=== PATIENT | male | born 1950 | race Caucasian/White ===

== ENCOUNTER → 2020-12-08 00:46 | Outpatient (CLI) | payer MEDICARE, SELFPAY ==
[2020-12-08 20:27] LABS: SARS-CoV-2 RNA PCR Negative
== END ==
PROVIDERS: Visit Provider Surgery
DX: Z01.812 Encounter for preprocedural laboratory examination (principal); Z20.822 Contact with and (suspected) exposure to COVID-19
CPT/HCPCS: C9803; U0003; U0005

== ENCOUNTER 2020-12-11 01:10 | Day surgery (SDC) | payer MEDICARE, SELFPAY ==
[2020-12-05 13:25] VITALS: BMI 22.1
--- NOTE | 2020-12-10 15:08 | WPDANESEPPF ---
Anes - Initial Pre Proc Eval Procedure: Operation Date: 12/11/20 13:30 Proposed Procedures p Repair Right Inguinal Hernia - Jovan Myers MD Date/Time: 12/10/20 15:08 Surgeon: Jovan Myers MD Pre Op Diagnosis: right inguinal hernia Patient Data Age: 70 Gender: M Height: 1.85 m Weight: 75.9 kg Allergies Allergy/AdvReac Type Severity Reaction Status Date / Time No Known Allergies Allergy Verified 12/05/20 13:23 Home Medications Medication Instructions Recorded Confirmed Type aspirin 81 mg chewable tablet 81 mg PO DAILY 12/02/20 12/05/20 History atorvastatin 40 mg tablet 40 mg PO HS 12/02/20 12/05/20 History buspirone 5 mg tablet 5 mg PO BID 12/02/20 12/05/20 History escitalopram oxalate 10 mg tablet 10 mg PO DAILY 12/02/20 12/05/20 History Patient hx anesthesia problems: none Family hx anesthesia problems: none PMFSH Past Medical History Medical History (Updated 12/10/20 @ 15:09 by Sánchez Kumar DO) Depression High cholesterol Stroke 01/2020 - L sided weakness, hoarse voice Surgical History Surgical History Hx of gastric bypass Family History Family History Unknown Malignant neoplasm Social History Social History (Updated 12/02/20 @ 10:29 by Elsi Michelle CMA) Years smoked: 15 Smoking status: Former smoker Tobacco type: cigars Smokeless tobacco user: chewing tobacco Second hand tobacco smoke exposure: No Additional smoking assessment comments: STATES QUIT SMOKING CIGARS 1980, QUIT CHEWING TOBACCO 2004 Alcohol intake: never Substance use: never Substance use type: does not use Spiritual care concerns: No Anes - Eval Final PreProcedure Day of Procedure 12/10/20 15:08 Patient weight: normal Heart: regular rate and rhythm Lungs: clear to auscultation and normal air movement Airway: Mallampati scale class II Neurological: alert and oriented Last oral intake: >/= 8 hours ASA classification: III Emergent: no Anesthetic plan: proceed Anesthesia type and monitoring: general GIVS and standard monitoring Informed Consent: The patient's anesthetic plan and its attendant risks and benefits were discussed with the patient/family/POA. Questions were solicited and answers provided to the satisfaction of the patient/family/POA.
[2020-12-11] VITALS (7 sets, daily range): BP systolic 110–122; BP diastolic 70–76; PULSE 60–84; RESP 16–20; TEMP 36.6–36.7; O2SAT 100; BMI 21.7
--- NOTE | 2020-12-11 06:05 | WPDHPUPDATE1 ---
History and Physical Update Update Date/Time: 12/11/20 06:05 History and Physical has been reviewed, including an updated exam of the patient. There are NO changes in the patient's condition. Risks, benefits, and alternatives have been discussed and questions answered. Patient agrees to proceed with procedure.
[2020-12-11] MEDS: LACTATED RINGERS 1,000 ML 30 ML IV CONT (12:10)
[2020-12-11] MEDS: ACETAMINOPHEN 500 MG TABLET 1000 MG PO (12:20)
[2020-12-11] MEDS: KETOROLAC 15 MG/ML VIAL (*BKC) IV PUSH (12:20)
--- NOTE | 2020-12-11 13:25 | SUR.PREOP ---
1325- Notified patient and spouse procedure start time delayed. Patient and spouse verbalized understanding.
[2020-12-11] MEDS: ceFAZolin 2 GM/D5W 50 ML 2 GM/50 ML BAG IVPB (14:58)
[2020-12-11] MEDS: BUPIVACAINE/EPINEPHRINE 0.5% 30 ML VIAL INFILTRATE (15:20)
--- NOTE | 2020-12-11 16:31 | W.PM.PROC2 ---
Procedure Note - Detailed Date of Procedure 12/11/20 Pre-op Diagnosis right inguinal hernia Post-op Diagnosis same Procedure Performed Right inguinal hernia repair with 6 cm Parietex hernia mesh system Surgeon Jovan Myers MD Computer Numerical Control Programmer Leigh Olmos CULINARY INSTRUCTOR CULINARY INSTRUCTOR Anesthesia general and local ( 0.5% Marcaine with epinephrine) Indications patient is a 70-year-old man who has noticed a right groin bulge which can get quite large at times. It is occasionally painful. He was seen in the office and found to have a right inguinal hernia. He is taken to surgery now for repair. Findings Showed an indirect right inguinal hernia. He also had a large lipoma of the cord. The lipoma was removed as well as the hernia repaired. Description of Procedure Patient was taken to surgery and induced into general anesthesia. The right groin and genitalia were prepped and draped in the usual fashion. The proposed incision was marked on the skin. Local was infiltrated in the area of the anticipated incision and the deeper subcutaneous tissues. Incision was made and dissection was carried down through the subcutaneous to the external oblique aponeurosis. The aponeurosis was exposed as was the external ring. Additional local was infiltrated deep to the aponeurosis in the area of the spermatic cord and inguinal canal contents. The external oblique was then opened laterally and this was extended medially through the external ring. The leaves of the aponeurosis were freed from the underlying inguinal canal contents. The ileal inguinal nerve was left attached to the cord and uninjured during the surgery. We then mobilized the cord medially on a Janet drain. I dissected back to the internal ring mobilizing the cord. No direct hernia defect was found. We dissected anteromedially in the cord and found a hernia sac. The sac was not particularly large. It was dissected free from the spermatic cord and dissected back to a high dissection. It was dunked into the retroperitoneum. Also in the cord was a large lipoma. I dissected this free and amputated it near the internal ring. It was discarded. I then chose a 6 cm Parietex tonawanda unfolded this to formal plug. The plug was placed in the indirect defect. It was sutured in place using interrupted 3 0 Vicryl suture to suture the edge of the plug to the transversalis fascia. I then cut the patch to the appropriate size and placed it over the inguinal canal floor. The lateral leaves were passed around the cord. The cord and ileoinguinal nerve were then laid over the patch. The external oblique aponeurosis was then closed with interrupted 3 0 Vicryl suture. Sudheer's fascia was closed with interrupted 3 0 Vicryl suture. The subcutaneous was closed with interrupted 4 0 Vicryl suture. The skin was loosely approximated with 4 0 Vicryl subcuticular skin suture. The skin was closed finally with a running 4 0 Monocryl skin suture. Sponge and needle counts were correct x2. Implants 6 cm Parietex hernia mesh system Estimated Blood Loss 5 Drains No Packing No Pathology none sent Complications None Condition stable Disposition PACU
== END 2020-12-11 18:22 | disposition home or self-care (01) ==
PROVIDERS: PCP Family Medicine; Visit Provider Surgery
PROC: (CPT 49505; principal; 2020-12-11 13:30)
DX: K40.90 Unilateral inguinal hernia, without obstruction or gangrene, not specified as recurrent (principal); E78.00 Pure hypercholesterolemia, unspecified; F32.9 Major depressive disorder, single episode, unspecified; Z79.82 Long term (current) use of aspirin; I69.354 Hemiplegia and hemiparesis following cerebral infarction affecting left non-dominant side; Z98.84 Bariatric surgery status; Z87.891 Personal history of nicotine dependence
CPT/HCPCS: 49505; A9270; C1781; J0330; J0690; J1100; J1885; J2405; J2704; J3010; J7120

== ENCOUNTER 2021-03-10 10:05 | Inpatient (IN) | payer MEDICARE, SELFPAY ==
[2021-03-10] VITALS (32 sets, daily range): BP systolic 87–105; BP diastolic 43–79; PULSE 63–96; RESP 14–27; TEMP 36.4–38.2; O2SAT 87–100; BMI 23.1
--- NOTE | ~2021-03-10 | US_ITS ---
EXAMINATION: US perc cholecystostomy w imag DATE: 03/11/2021 12:43 INDICATION: Acute cholecystitis. TECHNIQUE: The procedure including the risks, benefits, and alternatives was discussed with the patie nt. Risks discussed included bleeding including hemobilia, infection, and bile peritonitis. Oral and written consent were obtained. A timeout was performed to verify the patient's name, date of , and procedure to be performed. The patient was confirmed to be receiving appropriate antibiotic cov erage. The skin overlying the gallbladder was prepped and draped in usual sterile fashion. Anesthet ic was administered with 1% lidocaine subcutaneously. An 8.5 Fr catheter was inserted into the gallb ladder by trocar technique. The metal stiffener and trocar needle were removed, and the pigtail tip w as locked. Bile was aspirated and sent for culture. The catheter was stitched to the skin with suture . There were no immediate complications. FINDINGS: Ultrasound images demonstrate the catheter within the gallbladder. 5 mL bile was aspirated. IMPRESSION: 1. Successful ultrasound-guided cholecystostomy tube placement. 2. 5 mm brown bile was sent for aerobic and anaerobic cultures. 3. The catheter will be managed by Dr. Becerra. A catheter cholangiogram may be performed not less th an 48 hours after tube placement if clinically indicated to assess cystic duct patency. If cholecyste ctomy is not eventually performed and the infectious episode has resolved, the tube may be removed ov er a guidewire, preferably not less than 3 weeks after placement to allow time for a mature catheter tract to form to prevent bile leakage and peritonitis. Reviewed, dictated and finalized at location A. IMPRESSION: 1. Successful ultrasound-guided cholecystostomy tube placement. 2. 5 mm brown bile was sent for aerobic and anaerobic cultures. 3. The catheter will be managed by Dr. Becerra. A catheter cholangiogram may be performed not less than 48 hours after tube placement if clinically indicated to assess cystic duct patency. If cholecystectomy is not eventually performed a nd the infectious episode has resolved, the tube may be removed over a guidewir e, preferably not less than 3 weeks after placement to allow time for a mature catheter tract to form to prevent bile leakage and peritonitis.
--- NOTE | ~2021-03-10 | CT_ITS ---
EXAMINATION: CT abdomen pelvis w con DATE: 03/10/2021 13:44 INDICATION: Epigastric abdominal pain. TECHNIQUE: Computed tomography (CT) of the abdomen and pelvis was performed with 100 mL Omnipaque 350 intravenous contrast. Automated exposure control and iterative reconstruction technique were employe d. The dose-length product was 582.01 mGy-cm. COMPARISON: None. FINDINGS: The visualized portions of the lung bases demonstrate mild dependent atelectasis. A calcifi ed left lung nodule is consistent with old granulomatous disease. There are small pleural effusions. The heart size is normal. No pericardial effusion. There is a gallstone in the gallbladder neck. The gallbladder is distended with wall thickening. There is fat stranding around the gallbladder. There a re abscesses in the liver abutting the gallbladder measuring up to 6.8 x 1.5 cm. The spleen, pancreas , adrenal glands, and right kidney are normal. There is focal cortical thinning of left kidney. There is a 4 mm stone in left kidney. There are changes of gastric bypass procedure. There is a staple elisa e involving the proximal duodenum. There is diverticulosis of the colon without evidence of diverticu litis. There are no dilated loops of bowel. There are changes of appendectomy. There are no pathologi mimi enlarged lymph nodes. There is trace pelvic ascites. There is lumbar levoscoliosis and severe s pondylosis. There are chronic bilateral L5 pars defects. There is mild chronic anterior wedging of mu ltiple thoracic vertebral bodies. IMPRESSION: 1. Acute calculus cholecystitis with adjacent intrahepatic abscesses. 2. Small pleural effusions. Reviewed, dictated and finalized at location A.
--- NOTE | ~2021-03-10 | XR_ITS ---
EXAMINATION: XR chest 1V portable DATE: 03/10/2021 11:10 INDICATION: Left-sided weakness and slurred speech. TECHNIQUE: frontal view of the chest was obtained. COMPARISON: Chest radiograph dated 05/26/2016 FINDINGS: The lungs are clear with no focal airspace opacities, pulmonary edema, pleural effusion or pneumothor ax. The cardiomediastinal silhouette is normal. Postoperative changes in the upper abdomen. IMPRESSION: 1. No acute cardiopulmonary disease. Reviewed, dictated and finalized at location A.
--- NOTE | 2021-03-10 10:08 | ECG_ITS ---
Measurements Intervals [place] Rate: 93 P: 32 CT: 156 QRS: -24 QRSD: 108 T: 14 QT: 321 QTc: 400 Interpretive Statements SINUS RHYTHM VENTRICULAR PREMATURE COMPLEX INCOMPLETE RIGHT BUNDLE BRANCH BLOCK MINIMAL Q WAVES- ANTEROLATERAL LEADS BORDERLINE ECG Electronically Signed On 03-10-2021 13:04:43 CDT by Jamie Hernandez D.O.
[2021-03-10 10:47] LABS: Basophils Absolute Auto 0.1 K/mm3 (0.0-0.1); Basophils Percent Auto 0.6 % (0.2-1.2); Eosinophils Percent Auto 0.1 % (0-4.4); Hematocrit 43.7 % (42.0-52.0); Hemoglobin 15.2 g/dL (14.0-18.0); Immature Granulocyte Absolute 0.87 K/mm3 (0.00-0.031); Immature Granulocyte Percent A 4.6 % (0-0.5); Immature Platelet Fraction Pct 7.2 % (0.9-11.2); Lymphocytes Percent Auto 1.6 % (18.3-44.2); Mean Corpuscular HGB Conc 34.8 g/dl (32-36); Mean Corpuscular Hemoglobin 33.4 pg (26-34); Mean Platelet Volume 12.1 fl (7.4-10.4); Monocytes Absolute Auto 1.2 K/mm3 (0.1-0.6); Monocytes Percent Auto 6.4 % (2.6-8.5); Neutrophils Absolute Auto 16.3 K/mm3 (1.3-6.7); Neutrophils Percent Auto 86.7 % (45.5-73.1); Platelet Count Result 38 k/mm3 (150-375); Red Blood Count 4.55 M/mm3 (4.6-6.20); Red Cell Distribution Width 14.6 % (11.5-14.5); White Blood Count 18.8 K/mm3 (4.5-10.0)
[2021-03-10 11:01] LABS: INR 1.9; Partial Thromboplastin Time 39.2 SECONDS (22.3-36.8); Prothrombin Time 21.1 Seconds (11.1-14.7)
[2021-03-10 11:07] LABS: Anion Gap 13 mmol/L (8-16); Blood Urea Nitrogen 30 mg/dL (9-20); Calcium 8.7 mg/dL (8.4-10.2); Carbon Dioxide 22 mmol/L (22-30); Chloride 100 mmol/L (98-107); Estimated CRCL calculation 53 ml/min; Estimated Glomerular Filt Rate 55; Glucose 104 mg/dL (65-110); Potassium 3.8 mmol/L (3.4-5.0); Sodium 135 mmol/L (137-145)
[2021-03-10 11:18] LABS: Troponin I 0.015 ng/mL (0.000-0.034)
[2021-03-10] MEDS: SODIUM CHLORIDE 0.9% IV 1,000 ML 999 ML IV CONT (11:54)
--- NOTE | 2021-03-10 12:16 | ED.GENADULT ---
HPI - General Adult General Chief complaint: Neuro Symptoms/Deficit Stated complaint: l arm weakness, slurred speech Time Seen by Provider: 03/10/21 11:08 History of Present Illness HPI narrative: Patient is a 70-year-old male who presents the ER with increased weakness and fatigue over the last 3 days. reports patient has history of CVA that left arm with difficulty talking where he has to be asked questions multiple times and some chronic left-sided weakness that still allows him to function but is still present. He also has chronic hoarseness to his voice. She reports he has had some increased weakness over the last couple days and is dropping things. He is not as active. No documented fevers or chills or sweats. She denies any use been having any nausea or vomiting or cough. He is unvaccinated against Covid. No reports urinary frequency urgency or incontinence. Related Data Home Medications Medication Instructions Recorded Confirmed aspirin 81 mg chewable tablet 81 mg PO DAILY 12/02/20 03/10/21 atorvastatin 40 mg tablet 40 mg PO HS 12/02/20 03/10/21 buspirone 5 mg tablet 5 mg PO BID 12/02/20 03/10/21 escitalopram oxalate 10 mg tablet 10 mg PO DAILY 12/02/20 03/10/21 Allergies Allergy/AdvReac Type Severity Reaction Status Date / Time No Known Allergies Allergy Verified 01/13/21 14:04 Review of Systems Review of Systems: All systems reviewed & are unremarkable except as noted in HPI and below Constitutional: Constitutional: Denies chills, Denies fever(s) and Reports weakness ENT: Denies nasal congestion and Denies sore throat Cardiovascular: Cardiovascular: Denies chest pain, Denies rapid heart rate and Denies radiating jaw, neck or arm pain Respiratory: Respiratory: Denies cough, Denies dyspnea and Denies wheezing Gastrointestinal: Gastrointestinal: Denies abdominal pain, Denies diarrhea, Denies nausea and Denies vomiting Genitourinary: Genitourinary: Denies dysuria, Denies urinary frequency and Denies urinary incontinence Musculoskeletal: Musculoskeletal: Reports back pain (Intermittent back pain that is not localized.), Reports myalgias and Denies arthralgias [facility] Past Medical History Medical History (Updated 03/10/21 @ 20:50 by Charles Phelps MD) Depression High cholesterol Stroke 01/2020 - L sided weakness, hoarse voice Surgical History Surgical History History of inguinal hernia repair Right inguinal hernia repair with 6cm Parietex hernia mesh system 12/11/20 History of knee surgery Hx of gastric bypass Family History Family History Unknown Malignant neoplasm Social History Social History Years smoked: 15 Smoking status: Former smoker Tobacco type: cigarettes Smokeless tobacco user: chewing tobacco Second hand tobacco smoke exposure: No Additional smoking assessment comments: STATES QUIT SMOKING CIGARS 1980, QUIT CHEWING TOBACCO 2004 Alcohol intake: unknown Substance use: never Substance use type: does not use Living arrangements: with family Additional living arrangements comments: Lives with his , Mayra Gender identity (if verbalized by the patient): Male Sexual Orientation (if Verbalized by the Patient): Straight or Heterosexual Spiritual care concerns: No Exam Narrative: GENERAL: Chronically ill and fatigued-appearing, well-nourished, and in no acute distress. HEAD: Normocephalic, atraumatic. EYES: PERRL and EOMI. ENT: Dry mucous membranes. CHEST: Clear to auscultation. No respiratory distress. HEART: Regular rate and rhythm. Noormal peripheral pulses. ABDOMEN: Soft, nontender, nondistended. EXTREMITIES: Normal range of motion. No edema. SKIN: Warm, dry, no rash. NEURO: No focal deficits. No upper or lower extremity drift. Clear speech with hoarse voice. No word sea
[2021-03-10 12:20] LABS: Add Urine Microscopic? YES; Appearance Urine Cloudy (Clear); Bacteria Urine Trace /hpf; Bilirubin Urine Negative (Negative); Blood Urine 1+ (Negative); Budding Yeast Urine Present /hpf; Color Urine Amber (Yellow); Glucose Urine UA Negative (Negative); Ketones Urine Negative (Negative); Leukocyte Esterase Ur Negative LEU/UL (Negative); Mucus Urine Rare /lpf; Nitrate Urine Negative (Negative); Protein Urine 2+ mg/dL (Negative); Specific Grav Ur 1.024 (1.001-1.035); Squamous Epithelial Cell Urine Rare /hpf (Few)
[2021-03-10 12:21] LABS: Lactic Acid Reflex 4.4 mmol/L (0.7-2.1)
[2021-03-10] MEDS: SODIUM CHLORIDE 0.9% IV 2,400 ML/1,000 ML BAG 999 ML IV CONT ×3 (12:36→14:46)
[2021-03-10 14:06] LABS: Albumin Level 2.9 g/dL (3.5-5.1); Alkaline Phosphatase 286 U/L (38-126); Aspartate Amino Transferase 350 U/L (17-59); Bilirubin Direct 0.4 mg/dL (0-0.3); Bilirubin,Total 3.3 mg/dL (0.2-1.3); Lipase 20 U/L (23-300)
[2021-03-10 15:01] LABS: Alanine Aminotransferase 230 U/L (4-50)
[2021-03-10 15:09] LABS: Reflex Lactic Acid Yes or No Add Lactic
[2021-03-10 15:55] LABS: Lactic Acid 3.2 mmol/L (0.7-2.1)
--- NOTE | 2021-03-10 16:22 | PM.CNGS ---
Assessment and Plan Assessment and plan (1) Acute calculous cholecystitis: Code(s): K80.00 - Calculus of gallbladder with acute cholecystitis without obstruction Status: Acute Assessment and Plan: CT scan reviewed and discussed in detail with the patient and his . He has evidence of acute calculous cholecystitis with a gallstone in the neck of the gallbladder. The CT also suggests liver abscesses abutting the gallbladder. This appears to be the source of his sepsis. No mention of biliary duct dilatation to suggest choledocholithiasis as a possible cause for his transaminitis. Will continue to monitor with labs. This could be related to the acute cholecystitis. He is not a surgical candidate at this time due to his severe thrombocytopenia. Surgery would also be complicated given his history of gastric bypass years ago. We would recommend to continue to treat him with medical management at this time. Continue IV Zosyn and IV fluids. Dr. Becerra will review the CT scan with the Radiologist and decide about possible percutaneous intervention if necessary tomorrow, also depending on his platelets. Will repeat a CBC later tonight to recheck platelets and then again in the morning. Thank you for allowing us to see the patient in consultation and we will continue to follow along with you. (2) Liver abscess: Code(s): K75.0 - Abscess of liver Status: Acute Assessment and Plan: CT suggests abscesses in the liver abutting the gallbladder measuring up to 6.[address] Becerra will speak with the Radiologist and review the CT scan. Could consider percutaneous drainage if the fluid collections are amenable to drainage and his platelets come up to an ideal level for the Interventional Radiologist. (3) Sepsis: Code(s): A41.9 - Sepsis, unspecified organism Status: Acute Assessment and Plan: Secondary to #1/2 above. Blood cultures drawn. Continue IV fluid resuscitation and broad-spectrum IV antibiotics. See plan above regarding his gallbladder. Monitor labs. (4) Transaminitis: Code(s): R74.01 - Elevation of levels of liver transaminase levels Status: Acute Assessment and Plan: Elevated LFTs on admission. Could be due to the acute cholecystitis but would have to consider choledocholithiasis. No mention of biliary ductal dilatation on the CT scan. Repeat labs and monitor. If trending up, may need to consider an MRCP. (5) History of stroke: Code(s): Z86.73 - Personal history of transient ischemic attack (TIA), and cerebral infarction without residual deficits Status: Acute Assessment and Plan: Hx stroke 1 year ago. (6) Thrombocytopenia: Code(s): D69.6 - Thrombocytopenia, unspecified Status: Acute Assessment and Plan: Unclear etiology. Could be related to his sepsis. Management per Hospitalist. See plan above. Additional Plan I have discussed the patient's case and plan of care with Dr. Becerra. History of Present Illness Consult details Consult date: 03/10/21 Reason for consult: other (acute calculous cholecystitis with abutting liver abscesses) Requesting physician: Charles Phelps MD Narrative: This is a 70 year old male with a history of a stroke one year ago with residual left-sided weakness, who presented the emergency department today for evaluation of generalized weakness. His , Mayra, is at the bedside and helps provide some of his history. He is alert and oriented x 3 but reportedly forgetful with more recent memory. The patient woke up about 3 days ago with complaints of epigastric abdominal pain and mid back pain. He had never had this pain in the past. They were topically applying Aspercreme to his abdomen and back without much relief. He had loss of appetite, but no nausea or vomiting. The next day, he did still complain of pain but it had improved. His says that he did not leave bed most of the day and began becoming mo
--- NOTE | 2021-03-10 16:30 | PM.IMHP ---
H&P: HPI History of Present Illness Date/Time: 03/10/21 16:30 Chief Complaint: Weakness and fatigue. Narrative: This is a 70-year-old male with history of stroke with residual left-sided weakness and cognitive deficit, hypercholesterolemia, depression, and anxiety who presented to the emergency department earlier today for evaluation of increased weakness and fatigue for the last several days. Three or 4 days ago the patient was outside working in the yard, at times taking up and transferring bricks, and later that evening he was feeling some discomfort in his mid back radiating around into the upper abdomen. Initially he thought he had probably pulled a muscle and he applied Aspercreme to the area without much benefit. Since that time his appetite has dropped off and he has been much more fatigued, sleeping quite a bit the last couple of days. Early this morning his heard him in the bathroom and it sounded as though he had knocked something over, and when she went to check on him he seemed to be extremely weak and he needed her help to get back into the bed. He was unable to lift his legs up to get into bed due to pain in his stomach. also thought that he felt a bit warm and she decided to bring him into the emergency department. He had a low-grade fever on arrival of 100.8? and a majority of his labs were abnormal in some form or another. His blood pressures were also soft though he was adequately hydrated and the patient is report that his blood pressures are always on the lower side of normal. A CT of the abdomen and pelvis demonstrated acute calculous cholecystitis with adjacent intrahepatic abscesses measuring up to 6.8 x 1.5 cm. Interestingly he does not have much pain at all on physical exam. He has no known history of gallbladder disease. He denies nausea and vomiting. No diarrhea or dysuria. He has not noticed a change in urine output. Review of Systems Review of Systems: Twelve systems were reviewed. Patient has mild residual left-sided weakness from stroke in 2019. He also has some speech difficulties, mainly hoarseness. reports that he has not been the same cognitively since the stroke. No sick contacts. He denies chest pain and shortness of breath. No cough. Except as documented, all other systems were reviewed and are negative. [facility] Past Medical History Medical History (Updated 03/10/21 @ 21:50 by Nancy Mathew PA-C) Depression High cholesterol Stroke (01/2020) Residual left-sided weakness, hoarseness, and cognitive deficit. Surgical History Surgical History (Updated 03/10/21 @ 21:45 by Nancy Mathew PA-C) History of arthroscopy of both knees History of gastric bypass . History of inguinal hernia repair (12/11/20) Right inguinal hernia repair with 6cm Parietex hernia mesh system. Family History Family History (Updated 03/10/21 @ 21:46 by Nancy Mathew PA-C) Mother Morbid obesity Heart disease Diabetes mellitus Father Asbestosis Social History Social History (Updated 03/10/21 @ 21:47 by Nancy Mathew PA-C) Social History: Surrogate decision maker: Mayra Longoria, . Code status: Full code. Years smoked: 15 Smoking status: Former smoker Tobacco type: cigarettes, cigars and smokeless tobacco Smokeless tobacco user: chewing tobacco Second hand tobacco smoke exposure: No Additional smoking assessment comments: Quit smoking cigars in 1980, quit chewing tobacco in 2004 Alcohol intake: never Substance use: never Substance use type: does not use Living arrangements: with family Additional living arrangements comments: Lives with his , Mayra. They have 2 grown children. Additional occupation/education comments: Retired from [employer]. Meds Home Medications and Allergies Home Medications Medication Instructions Recorded Confirmed Type aspirin 81 mg chewable tablet 81 mg PO DAILY 12/02/20 03/10/21 History atorvast
[2021-03-10] MEDS: LACTATED RINGERS 1,000 ML 125 ML IV CONT (16:54)
--- NOTE | 2021-03-10 17:58 | PC.NURSE ---
This patient, Lucien Longoria, was admitted to Intensive Care Unit-2. Patient/family oriented to hospital policies and general routines including ID bracelet, bed and alarms, visiting hours, pain management, procedures, bathroom and other care routines, personal items, smoking policy, room service/diet, and visiting hours. Information on how to activate the Rapid Response Team has been discussed. Patient/Family are encouraged to report perceived risks to care and to ask questions if they do not understand what they are told or what they should do.
[2021-03-10] MEDS: LACTATED RINGERS 1,000 ML 999 ML IV CONT (18:00)
[2021-03-10 18:59] LABS: Hematocrit 33.9 % (42.0-52.0); Hemoglobin 11.9 g/dL (14.0-18.0); Immature Platelet Fraction Pct 8.9 % (0.9-11.2); Mean Corpuscular HGB Conc 35.1 g/dl (32-36); Mean Corpuscular Hemoglobin 33.8 pg (26-34); Mean Corpuscular Volume 96.3 fl (80-100); Mean Platelet Volume 11.8 fl (7.4-10.4); Platelet Count Result 26 k/mm3 (150-375); Red Blood Count 3.52 M/mm3 (4.6-6.20); Red Cell Distribution Width 14.8 % (11.5-14.5); White Blood Count 26.4 K/mm3 (4.5-10.0)
[2021-03-10 19:06] LABS: Alanine Aminotransferase 294 U/L (4-50); Albumin Level 2.2 g/dL (3.5-5.1); Alkaline Phosphatase 124 U/L (38-126); Anion Gap 6 mmol/L (8-16); Aspartate Amino Transferase 490 U/L (17-59); Bilirubin,Total 4.3 mg/dL (0.2-1.3); Blood Urea Nitrogen 31 mg/dL (9-20); Calcium 7.3 mg/dL (8.4-10.2); Carbon Dioxide 22 mmol/L (22-30); Chloride 106 mmol/L (98-107); Estimated CRCL calculation 62 ml/min; Estimated Glomerular Filt Rate > 60; Glucose 115 mg/dL (65-110); Potassium 3.8 mmol/L (3.4-5.0); Sodium 134 mmol/L (137-145)
[2021-03-10 19:14] LABS: Alveolar/Arterial O2 Gradient 39.5 mmHg; Base Excess ABG -4.1 mEq/l (+/-2.0); Fractional Inspired Oxygen 21 %; HCO3 ABG 19.1 mEq/l (22.0-26.0); Oxygen Content ABG 16.9 %vol (16.0-22.0); Oxygen Saturation ABG 95.5 % (95.0-100.0); Oxyhemoglobin 94.2 % THb (90.0-100.0); PCO2 ABG 29.7 mmHg (35.0-45.0); PO2 ABG 74.7 mmHg (80.0-100.0); PO2 FiO2 Ratio Arterial Blood 3.56 %; Total Hemoglobin 12.7 g/dL (12.0-18.0); pH ABG 7.426 (7.350-7.450)
[2021-03-10 19:15] LABS: Device ROOM AIR; Modified Allen's Test Pass; Site Drawn LEFT RADIAL
[2021-03-10 19:26] LABS: Band Neutrophils Percent 7 % (0-6); Lymphocytes Absolute Manual 2.37 K/mm3 (1.1-4.5); Monocytes Percent Manual 11 % (3-9); Neutrophils Absolute Manual 21.12 K/mm3 (1.3-6.7); Neutrophils Percent Manual 73 % (46-73); Total Cells Counted 100
[2021-03-10 19:27] LABS: Platelet Estimate Decreased (Adequate)
[2021-03-10 22:40] LABS: Lactate Dehydrogenase 1262 U/L (313-618)
[2021-03-11] VITALS (21 sets, daily range): BP systolic 99–125; BP diastolic 54–87; PULSE 61–79; RESP 17–25; TEMP 36.6–37.2; O2SAT 19–100
[2021-03-11 04:48] LABS: Hematocrit 36.3 % (42.0-52.0); Hemoglobin 12.8 g/dL (14.0-18.0); Immature Platelet Fraction Pct 6.6 % (0.9-11.2); Mean Corpuscular HGB Conc 35.3 g/dl (32-36); Mean Corpuscular Hemoglobin 33.2 pg (26-34); Mean Corpuscular Volume 94.3 fl (80-100); Mean Platelet Volume 11.4 fl (7.4-10.4); Platelet Count Result 48 k/mm3 (150-375); Red Blood Count 3.85 M/mm3 (4.6-6.20); Red Cell Distribution Width 14.8 % (11.5-14.5); White Blood Count 23.2 K/mm3 (4.5-10.0)
[2021-03-11 05:25] LABS: INR 1.9; Partial Thromboplastin Time 40.9 SECONDS (22.3-36.8); Prothrombin Time 21.6 Seconds (11.1-14.7)
[2021-03-11 05:49] LABS: Nucleated Red Blood Cells 1 %
[2021-03-11 05:51] LABS: Band Neutrophils Percent 13 % (0-6); Basophils Absolute Manual 3.01 K/mm3 (0.0-0.1); Basophils Percent Manual 13 % (0-1); Lymphocytes Absolute Manual 0.92 K/mm3 (1.1-4.5); Monocytes Absolute Manual 1.62 K/mm3 (0.1-0.90); Monocytes Percent Manual 7 % (3-9); Neutrophils Absolute Manual 17.63 K/mm3 (1.3-6.7); Neutrophils Percent Manual 63 % (46-73); Total Cells Counted 100
[2021-03-11 05:52] LABS: Atypical Lymphocytes Present; Platelet Estimate Decreased (Adequate)
[2021-03-11 06:14] LABS: Alanine Aminotransferase 255 U/L (4-50); Albumin Level 2.1 g/dL (3.5-5.1); Alkaline Phosphatase 102 U/L (38-126); Anion Gap 6 mmol/L (8-16); Aspartate Amino Transferase 331 U/L (17-59); Bilirubin Direct 0.1 mg/dL (0-0.3); Bilirubin,Total 2.5 mg/dL (0.2-1.3); Blood Urea Nitrogen 33 mg/dL (9-20); Calcium 7.8 mg/dL (8.4-10.2); Carbon Dioxide 23 mmol/L (22-30); Chloride 108 mmol/L (98-107); Estimated CRCL calculation 66 ml/min; Estimated Glomerular Filt Rate > 60; Glucose 102 mg/dL (65-110); Lipase 60 U/L (23-300); Magnesium 2.2 mg/dL (1.6-2.3); Potassium 3.5 mmol/L (3.4-5.0); Sodium 137 mmol/L (137-145)
[2021-03-11 06:21] LABS: Prealbumin 5.1 mg/dL (17.6-36.0)
[2021-03-11 06:32] LABS: HAV RESULT Negative (Negative); Hepatitis B Core IgM Result Negative (Negative); Hepatitis B Surface Antigen Negative (Negative); Hepatitis C Virus Antibody Negative (Negative)
--- NOTE | 2021-03-11 08:07 | PM.PNGS ---
Progress Note: A&P Assessment and Plan (1) Acute calculous cholecystitis: Onset Date: ~03/08/21 Code(s): K80.00 - Calculus of gallbladder with acute cholecystitis without obstruction Status: Acute Assessment and Plan: This was shown by CT scan of the abdomen and pelvis yesterday. It appears that there is a calcified stone at the neck of the gallbladder leading to the problem. Planning for invasive radiology to place percutaneous cholecystostomy tube for drainage and send cultures today. (2) Severe sepsis: Onset Date: ~03/10/21 Code(s): A41.9 - Sepsis, unspecified organism; R65.20 - Severe sepsis without septic shock Status: Acute (3) Liver abscess: Onset Date: Unknown Code(s): K75.0 - Abscess of liver Status: Acute Assessment and Plan: This appears to be directly adjacent to the gallbladder and hopefully will drain and with the cholecystostomy tube and improve with the antibiotics. (4) Thrombocytopenia: Onset Date: ~03/10/21 Code(s): D69.6 - Thrombocytopenia, unspecified Status: Acute Assessment and Plan: I recommend avoiding subcu heparin and Lovenox. Has received platelet transfusions and will get 1 more prior to percutaneous drainage of the gallbladder today. 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 Will see if he can tolerate a diet and then add Ensure to boost his protein calories. Additional Plan will begin allowing patient low-fat diet following the procedure today if he is also feeling well. Patient has had probably a vertical banded gastroplasty in the past so should have low-fat meals 5 small meals per day. Subjective Subjective Date/Time Seen: 03/11/21 08:07 Patient reports: no new complaints and still having pain ( mild in right upper quadrant) Review of Systems Constitutional: Constitutional: Reports no additional constitutional complaints and Denies frequent falls Eyes: Eyes: Reports as per HPI Cardiovascular: Cardiovascular: Denies chest pain, Denies palpitations, Denies dyspnea and Denies dyspnea on exertion Respiratory: Respiratory: Denies hemoptysis, Denies dyspnea, Denies dyspnea on exertion and Denies wheezing Genitourinary: Genitourinary: Denies hematuria, Denies nocturia and Denies urinary frequency Musculoskeletal: Musculoskeletal: Denies deformity and Reports other ( no clubbing,cyanosis, or edema) Integumentary/Breasts: Skin/Breast: Denies new lesions, Denies rash and Denies unusual bruising Neurologic: Denies dizziness, Denies frequent falls, Denies memory loss and Denies seizure-like activity Psychiatric: Psychiatric: Denies memory loss and Reports other ( normal mood and mental status) Endocrine: Endocrine: Denies cold intolerance and Denies palpitations Exam Const: General: cooperative, healthy appearing, no acute distress, well developed and alert; No confusion Nutritional Appearance: well nourished Orientation/consciousness: patient oriented x3 and No confusion Limitations: no limitations HENMT: Head: normal to inspection, normocephalic and atraumatic Ears: hearing grossly normal bilaterally General nose exam: Normal external nose present Face and sinus: no edema Mouth: Yes Normal oral and palatal mucosa present and Yes lip normal Throat: posterior oropharynx normal Eyes: General: appearance normal, both eyes and all related structures Sclera: sclerae normal Pupils: Equal, round and reactive pupils present Neck: Neck: normal visual inspectio
--- NOTE | 2021-03-11 08:55 | WPDCNINT ---
Assessment and Plan Assessment and plan (1) Sepsis: Code(s): A41.9 - Sepsis, unspecified organism Status: Acute Assessment and Plan: Secondary to acute calculous cholecystitis and liver abscess. CT showed IMPRESSION:1. Acute calculus cholecystitis with adjacent intrahepatic abscesses. 2. Small pleural effusions. Initial lactic acid was 3.2. Patient received 4 L bolus in the ER On arrival to ICU [place] assessment showed patient was responsive to fluids and was given another 1 L Since then patient's lactate has cleared and has normalized Patient has not required vasopressors at this time Blood culture sent and are pending Patient is on empiric Zosyn General surgery was consulted and they recommend drain placement by intervention Radiology Plan for drain placement today. Patient is getting platelet transfusion for thrombocytopenia Patient will eventually need surgery -general surgery following (2) Liver abscess: Code(s): K75.0 - Abscess of liver Status: Acute Assessment and Plan: See above (3) Acute calculous cholecystitis: Code(s): K80.00 - Calculus of gallbladder with acute cholecystitis without obstruction Status: Acute Assessment and Plan: See above (4) Thrombocytopenia: Code(s): D69.6 - Thrombocytopenia, unspecified Status: Acute Assessment and Plan: Likely secondary to sepsis Patient has received 2 units of platelets overnight and is going to get 1 more unit at this time as per radiologist's request for scheduled invasive procedure (5) Abnormal coagulation profile: Code(s): R79.1 - Abnormal coagulation profile Status: Acute Assessment and Plan: Likely DIC Vitamin K Check fibrinogen level (6) Transaminitis: Code(s): R74.01 - Elevation of levels of liver transaminase levels Status: Acute Assessment and Plan: Likely secondary to sepsis and liver abscess Viral hepatitis panel is negative Hold statin Monitor LFTs Additional Plan DVT prophylaxis -SCDs Nutrition -NPO Code Status - Full Code Total Critical Care Time - 32 minutes Due to a high probability of clinically significant, life threatening deterioration, the patient required my highest level of preparedness to intervene emergently and I personally spent this critical care time directly and personally managing the patient. This critical care time included obtaining a history; examining the patient; pulse oximetry; ordering and review of studies; arranging urgent treatment with development of a management plan; evaluation of patient's response to treatment; frequent reassessment; and discussions with other providers. It was exclusive of separately billable procedures and treating other patients and teaching time. 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 He was accompanied by his who provided most of the history at the time of presentation in ER. On presentation to ED he was febrile and has significant abnormalities on his labs and his blood pressures were also soft. A CT of the abdomen and pelvis demonstrated acute calculous cholecystitis with adjacent intrahepatic abscesses measuring up to 6.8 x 1.5 cm. He was given IV fluid bolus and admitted to ICU. General surgery was consulted. This morning when I saw the patient he is a very poor historian. He told me that he had abdominal pain which started at 2:00 p.m. although he was unable to tell me what date. Pain is 5/10 in right upper quadrant no radiation. He was un
[2021-03-11 09:51] LABS: Fibrinogen 250 mg/dl (215-510)
[2021-03-11] MEDS: KCL 20 MEQ/0.45% NS 1,000 ML 100 ML IV CONT ×2 (09:56→18:16)
[2021-03-11] MEDS: PHYTONADIONE INJ 10 MG/ML AMP SUB-Q (09:56)
[2021-03-11] MEDS: SODIUM CHLORIDE 0.9% IV 250 ML 30 ML IV CONT (20:30)
[2021-03-12] VITALS (9 sets, daily range): BP systolic 98–128; BP diastolic 63–78; PULSE 52–68; RESP 16–22; TEMP 36.4–37.1; O2SAT 92–100; BMI 23.4
--- NOTE | 2021-03-12 01:49 | PC.NURSE ---
[facility], updated on patient departure and en rout to accepting.
[2021-03-12 04:40] LABS: Hemoglobin 11.6 g/dL (14.0-18.0); Immature Platelet Fraction Pct 6.5 % (0.9-11.2); Mean Corpuscular HGB Conc 34.1 g/dl (32-36); Mean Corpuscular Hemoglobin 33.1 pg (26-34); Mean Corpuscular Volume 97.1 fl (80-100); Mean Platelet Volume 11.3 fl (7.4-10.4); Platelet Count Result 52 k/mm3 (150-375); Red Cell Distribution Width 15.2 % (11.5-14.5); White Blood Count 15.8 K/mm3 (4.5-10.0)
[2021-03-12 04:51] LABS: Alanine Aminotransferase 151 U/L (4-50); Albumin Level 2.2 g/dL (3.5-5.1); Alkaline Phosphatase 92 U/L (38-126); Anion Gap 3 mmol/L (8-16); Aspartate Amino Transferase 123 U/L (17-59); Bilirubin,Total 1.7 mg/dL (0.2-1.3); Blood Urea Nitrogen 24 mg/dL (9-20); Calcium 7.5 mg/dL (8.4-10.2); Carbon Dioxide 25 mmol/L (22-30); Chloride 106 mmol/L (98-107); Estimated CRCL calculation 81 ml/min; Estimated Glomerular Filt Rate > 60; Glucose 95 mg/dL (65-110); Magnesium 2.4 mg/dL (1.6-2.3); Potassium 3.6 mmol/L (3.4-5.0); Sodium 134 mmol/L (137-145)
[2021-03-12] MEDS: KCL 20 MEQ/0.45% NS 1,000 ML 100 ML IV CONT (05:07)
--- NOTE | 2021-03-12 07:29 | PM.IMPN ---
Progress Note: A&P Assessment and Plan (1) Sepsis: Code(s): A41.9 - Sepsis, unspecified organism Status: Acute Assessment and Plan: Secondary to acute calculous cholecystitis and liver abscess. CT showedacute calculus cholecystitis with adjacent intrahepatic abscesses and small pleural effusions. Initial lactic acid was 3.2. Patient received 4 L bolus in the ER On arrival to ICU initial assessment showed patient was responsive to fluids and was given another 1 L Since then patient's lactate has cleared and has normalized Patient has not required vasopressors at this time Blood culture sent and are pending Patient is on empiric Zosyn General surgery recommend drain placement by interventional Radiology Patient s/p drain placement with improvement of his symptoms on 03/11/2021.. Patients/p platelet transfusion for thrombocytopenia Currently hemodynamically stable, with a blood pressure of 110/72. Clinically improving with improvement of his right upper quadrant abdominal pain. (2) Liver abscess: Onset Date: Unknown Code(s): K75.0 - Abscess of liver Status: Acute Assessment and Plan: Continue IV antibiotics with IV Zosyn. Follow-up blood cultures. Blood cultures are non revealing to date. (3) Acute calculous cholecystitis: Onset Date: ~03/08/21 Code(s): K80.00 - Calculus of gallbladder with acute cholecystitis without obstruction Status: Acute Assessment and Plan: Currently being treated for sepsis secondary to acute calculous cholecystitis and liver abscess. Continue IV antibiotics. Patient will need surgery in the future. (4) Thrombocytopenia: Onset Date: ~03/10/21 Code(s): D69.6 - Thrombocytopenia, unspecified Status: Acute Assessment and Plan: Likely secondary to sepsis Patient has received 2 units of platelets overnight and is going to get 1 more unit at this time as per radiologist's request for scheduled invasive procedure. The platelet count has improved from 26 to 48-52. Monitor daily platelet count (5) Abnormal coagulation profile: Code(s): R79.1 - Abnormal coagulation profile Status: Acute Assessment and Plan: This is likely his consumption secondary to DIC. On admission labs INR was 1.9, PTT 21.6, APTT was 40.9 at and fibrinogen was 250. Monitor coagulation profile. Vitamin-K was supplemented. 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 He was accompanied by his who provided most of the history at the time of presentation in ER. On presentation to ED he was febrile and has significant abnormalities on his labs and his blood pressures were also soft. A CT of the abdomen and pelvis demonstrated acute calculous cholecystitis with adjacent intrahepatic abscesses measuring up to 6.8 x 1.5 cm. He was given IV fluid bolus and admitted to ICU. General surgery was consulted. Patient underwent placement of percutaneous cholecystectomy tube for drainage with improvement of his symptoms. Follow-up drainage fluid cultures. 03/12/21 07:29 S: Patient was examined at the bedside . Improvement of his RUQ pain. No bowel movement; flatus(+). Review of Systems Review of Systems: All systems reviewed & are unremarkable except as noted in HPI and below (HPI) Constitutional: Constitutional: Reports as
--- NOTE | 2021-03-12 09:09 | WPDINTPN ---
Progress Note: A&P Assessment and Plan (1) Sepsis: Code(s): A41.9 - Sepsis, unspecified organism Status: Acute Assessment and Plan: Secondary to acute calculous cholecystitis and liver abscess. CT showed IMPRESSION:1. Acute calculus cholecystitis with adjacent intrahepatic abscesses. 2. Small pleural effusions. Patient has seasoning over of IV fluids for resuscitation and his lactate has normalized His blood pressure has been adequate and he has not required any vasopressors 03/11 - Successful ultrasound-guided cholecystostomy tube placement. Blood culture are growing Gram-negative rods. Bile was sent for cultures yesterday and is pending Patient is on empiric Zosyn General surgery is following Patient will eventually need surgery -general surgery following Continue but decrease IV fluids (2) Liver abscess: Onset Date: Unknown Code(s): K75.0 - Abscess of liver Status: Acute Assessment and Plan: See above (3) Acute calculous cholecystitis: Onset Date: ~03/08/21 Code(s): K80.00 - Calculus of gallbladder with acute cholecystitis without obstruction Status: Acute Assessment and Plan: See above (4) Thrombocytopenia: Onset Date: ~03/10/21 Code(s): D69.6 - Thrombocytopenia, unspecified Status: Acute Assessment and Plan: Likely secondary to sepsis Patient has received 2 units of platelets yesterday for procedure Continue to monitor and transfuse as needed (5) Abnormal coagulation profile: Code(s): R79.1 - Abnormal coagulation profile Status: Acute Assessment and Plan: Likely mild DIC. His fibrinogen was adequate Vitamin K was given 03/11 (6) Transaminitis: Code(s): R74.01 - Elevation of levels of liver transaminase levels Status: Acute Assessment and Plan: Likely secondary to sepsis and liver abscess Viral hepatitis panel is negative Hold statin Bilirubin level is decreasing Monitor LFTs which are improving Additional Plan DVT prophylaxis -SCDs Nutrition -liquid diet, advanced per General surgery Code Status - Full Code Incentive spirometry, up in chair, consult PT and OT Transfer out of ICU today Subjective Date/time seen: 03/12/21 09:09 Overnight events reviewed. Patient had drain placement and right upper quadrant by Radiology yesterday. Draining bilious content. States he sore in his right upper quadrant in abdomen and he rates his soreness at 7/10. Denies any nausea vomiting fever chest pain or shortness of breath. He is tolerating liquid diet. He is afebrile.. All other systems were reviewed and were negative Review of Systems Review of Systems: All systems reviewed & are unremarkable except as noted in HPI and below (HPI) Exam Narrative: General: Pt is alert awake and in NAD, impaired hearing Lungs/Chest: Trachea central Clear BS B/L, No crackles or wheezing. Cardiac: RRR. Normal S1 S2. No murmurs Circulation: Pedal pulses are intact and symmetrical. Abdomen: Decreased bowel sounds.. Soft. Nondistended no guarding, mild tender to palpation in right upper quadrant [place] drain in right upper quadrant with bilious drainage Extremities: No clubbing, cyanosis or edema. Warm : Gill in place Neurologic: Follows commands. Moves all 4 extremities PERRL AO x3 Skin: No Rash Objective Data Vital Signs Vital Signs: Vital Signs - 24 hr 03/11/21 10:00 03/11/21 12:00 03/11/21 14:00 Temperature 36.9 C Pulse Rate 76 74 65 Respiratory Rate 22 H 24 H 20 Blood Pressure 115/54 L 109/75 102/69 Pulse Oximetry 96 95 96 03/11/21 16:00 03/11/21 18:00 03/11/21 20:00 Temperature 36.9 C Pulse Rate 79 67 61 Respiratory Rate 23 H 25 H 21 H Blood Pressure 103/66 117/72 110/72 Pulse Oximetry 95 99 96 03/11/21 20:32 03/11/21 20:35 03/11/21 20:49 Temperature 36.9 C 36.9 C 36.7 C Pulse Rate 66 72 69 Respiratory Rate 20 20 21 H Blood Pressure 110/72 125/76 113/77 Pulse
[2021-03-12] MEDS: POTASSIUM CHLORIDE 20 MEQ TABLET 40 MEQ PO (09:18)
--- NOTE | 2021-03-12 11:14 | PM.PNGS ---
Progress Note: A&P Assessment and Plan (1) Acute calculous cholecystitis: Onset Date: ~03/08/21 Code(s): K80.00 - Calculus of gallbladder with acute cholecystitis without obstruction Status: Acute Assessment and Plan: This was shown by CT scan of the abdomen and pelvis on 03/10. It appears that there is a calcified stone at the neck of the gallbladder leading to the problem. . (2) Severe sepsis: Onset Date: ~03/10/21 Code(s): A41.9 - Sepsis, unspecified organism; R65.20 - Severe sepsis without septic shock Status: Acute Assessment and Plan: improving. No fever today. Starting a tolerated diet. Blood cultures apparently plan min early going to gram-negative. (3) Liver abscess: Onset Date: Unknown Code(s): K75.0 - Abscess of liver Status: Acute Assessment and Plan: This appears to be directly adjacent to the gallbladder and hopefully will drain with the cholecystostomy tube and improve with the antibiotics. (4) Thrombocytopenia: Onset Date: ~03/10/21 Code(s): D69.6 - Thrombocytopenia, unspecified Status: Acute Assessment and Plan: I recommend avoiding subcu heparin and Lovenox. Has received platelet transfusions. Platelet count 50,000 today continue to monitor. (5) History of stroke: Code(s): Z86.73 - Personal history of transient ischemic attack (TIA), and cerebral infarction without residual deficits Status: Acute (6) Hypoalbuminemia: Code(s): E88.09 - Other disorders of plasma-protein metabolism, not elsewhere classified Status: Acute Assessment and Plan: Possibly related to his previous gastric bypass. Patient probably has not been eating well for the last 2 weeks at home in view of this were result. Could also be related to his recent onset of acute cholecystitis and sepsis with decreased appetite. Will see if he can tolerate a diet and then add Ensure to boost his protein calories. Because of his previous gastric bypass he will need 4-5 small meals per day provided by our Nutrition Department. Additional Plan Okay with me to transfer to the floor. Will leave it up to Medicine and hvac designer as to whether patient needs monitored bed. I will allow patient low-fat diet if he is also feeling well. Patient has had probably a vertical banded gastroplasty in the past so should have low-fat meals 4-5 small meals per day. Will put in for a duplex suppository today since the patient has not had a bowel movement and also dietary consult to help with the plans for his nutrition while hospitalized and for home going. Subjective Subjective Date/Time Seen: 03/12/21 11:14 Post Op day: 1 ( status post ultrasound-guided cholecystostomy tube placement) Patient reports: no new complaints, feels better and flatus Interval history: No bowel movement yet. Patient did try full liquids at breakfast. ( Nurse reports patient did take too much but did drink the Ensure). He states he has a little soreness in the right upper quadrant near the drain but otherwise feels well. Review of Systems Review of Systems: ROS unobtainable: Yes other ( Limited secondary to memory issues) Constitutional: Constitutional: Denies chills, Denies fever(s) and Reports poor appetite ( as per nurse) Eyes: Eyes: Reports other ( no obvious icterus) Cardiovascular: Cardiovascular: Denies chest pain Gastrointestinal: Gastrointestinal: Reports constipation ( no bowel movement since arriving to the hospital) Exam Const: General: cooperative, no acute distress, alert and awake Eyes: Sclera: sclerae normal GI: Inspection: normal to inspection and other ( dressing with exit of the drain high right upper quadrant) GI Palp: Yes abdominal tenderness ( Only near the drain right upper quadrant.) and Yes Soft to palpation Auscultation: normal bowel sounds Other: Bile colored brown bilious drainage in cholecystostomy ba
--- NOTE | 2021-03-12 11:47 | PC.NURSE ---
Spoke to dietary, and per Dr. Becerra request - patient will receive 4-5 small meals, in place of 3 large meals.
[2021-03-12] MEDS: BISACODYL 10 MG SUPPOSITORY RECTAL (15:01)
--- NOTE | 2021-03-12 15:02 | PC.NURSE ---
This patient, Lucien Longoria, was transferred to [[facility] ] on 03/12/21 at 1502. Personal belongings sent with patient. Report given to [ Megha OSCAR]. Appropriate documentation sent with patient.
[2021-03-12] MEDS: ACETAMINOPHEN 325 MG TABLET 650 MG PO (22:20)
[2021-03-13 05:36] VITALS: BP 115/68; PULSE 80; RESP 18; TEMP 36.8; O2SAT 97
[2021-03-13 06:14] LABS: Hematocrit 33.3 % (42.0-52.0); Hemoglobin 11.7 g/dL (14.0-18.0); Mean Corpuscular HGB Conc 35.1 g/dl (32-36); Mean Corpuscular Volume 93.8 fl (80-100); Mean Platelet Volume 11.4 fl (7.4-10.4); Platelet Count Result 41 k/mm3 (150-375); Red Blood Count 3.55 M/mm3 (4.6-6.20); Red Cell Distribution Width 15.1 % (11.5-14.5); White Blood Count 13.5 K/mm3 (4.5-10.0)
[2021-03-13 06:25] LABS: Alanine Aminotransferase 103 U/L (4-50); Alkaline Phosphatase 87 U/L (38-126); Anion Gap 2 mmol/L (8-16); Aspartate Amino Transferase 64 U/L (17-59); Bilirubin,Total 1.5 mg/dL (0.2-1.3); Blood Urea Nitrogen 17 mg/dL (9-20); Calcium 7.6 mg/dL (8.4-10.2); Carbon Dioxide 25 mmol/L (22-30); Chloride 106 mmol/L (98-107); Estimated CRCL calculation 85 ml/min; Estimated Glomerular Filt Rate > 60; Glucose 92 mg/dL (65-110); Magnesium 2.2 mg/dL (1.6-2.3); Potassium 3.6 mmol/L (3.4-5.0); Sodium 133 mmol/L (137-145)
[2021-03-13] MEDS: KCL 20 MEQ/0.45% NS 1,000 ML 50 ML IV CONT (06:42)
[2021-03-13 08:00] VITALS: O2SAT 97
--- NOTE | 2021-03-13 10:09 | PM.PNGS ---
Progress Note: A&P Assessment and Plan (1) Acute calculous cholecystitis: Onset Date: ~03/08/21 Code(s): K80.00 - Calculus of gallbladder with acute cholecystitis without obstruction Status: Acute Assessment and Plan: This was shown by CT scan of the abdomen and pelvis on 03/10. It appears that there is a calcified stone at the neck of the gallbladder leading to the problem. . (2) Severe sepsis: Onset Date: ~03/10/21 Code(s): A41.9 - Sepsis, unspecified organism; R65.20 - Severe sepsis without septic shock Status: Acute Assessment and Plan: improving. No fever today. He is tolerating a diet. Blood cultures apparently growing a gram-negative. ----now ID'ed as Klebsiella pneumonia sensitive to Zosyn and also to Augmentin. (3) Liver abscess: Onset Date: Unknown Code(s): K75.0 - Abscess of liver Status: Acute Assessment and Plan: This appears to be directly adjacent to the gallbladder and hopefully will drain with the cholecystostomy tube and improve with the antibiotics. (4) Thrombocytopenia: Onset Date: ~03/10/21 Code(s): D69.6 - Thrombocytopenia, unspecified Status: Acute Assessment and Plan: I recommend avoiding subcu heparin and Lovenox and the aspirin documented as a home med. Has received platelet transfusions. Platelet count 41,000 today continue to monitor. Discussed with Dr. Barrera and will get Hematology consultation since in approximately 4-6 weeks patient should consider having a cholecystectomy. However, we would want him to have a more normal platelet count if at all possible. (5) History of stroke: Code(s): Z86.73 - Personal history of transient ischemic attack (TIA), and cerebral infarction without residual deficits Status: Acute (6) Hypoalbuminemia: Code(s): E88.09 - Other disorders of plasma-protein metabolism, not elsewhere classified Status: Acute Assessment and Plan: Possibly related to his previous gastric bypass. Patient probably has not been eating well for the last 2 weeks at home in view of the low pre-albumin result. Could also be related to his recent onset of acute cholecystitis and sepsis with decreased appetite. Will see if he can tolerate a diet and then add Ensure to boost his protein calories. Because of his previous gastric bypass he will need 4-5 small meals per day provided by our Nutrition Department. Additional Plan I will allow patient low-fat diet if he is also feeling well. Appreciate dietary consultation and starting patient on Ensure compact. Patient has had probably a vertical banded gastroplasty in the past so should have low-fat meals 4-5 small meals per day. Agree with plan for hematology consultation regarding thrombocytopenia. Subjective Subjective Date/Time Seen: 03/13/21 10:09 Post Op day: 2 (Status post ultrasound-guided cholecystostomy tube) Patient reports: feels better and bowel movement Interval history: Still does not have much of an appetite foot has been seen by a dietitian and will be getting Ensure compact between meals. Review of Systems Review of Systems: All systems reviewed & are unremarkable except as noted in HPI and below ROS unobtainable: Yes other ( Limited secondary to memory issues) Constitutional: Constitutional: Reports as per HPI, Reports no additional constitutional complaints, Denies chills, Denies fever(s), Denies frequent falls, Reports poor appetite ( as per nurse) and Reports weakness Eyes: Eyes: Reports as per HPI and Reports other ( no obvious icterus) ENT: Denies dizziness Cardiovascular: Cardiovascular: Reports no additional cardiovascular complaints, Denies chest pain, Denies leg edema, Denies palpitations, Denies dyspnea and Denies dyspnea on exertion Respiratory: Respiratory: Reports no additional respiratory complaints, Denies cough, Denies hemoptysis, Denies dyspnea, Denies dyspnea on ex
[2021-03-13] MEDS: CEFDINIR 300 MG CAPSULE PO ×2 (13:51→21:06)
[2021-03-13 14:28] VITALS: BP 114/70; PULSE 89; RESP 14; TEMP 36.6; O2SAT 98
[2021-03-13] MEDS: busPIRone HCL 5 MG TABLET PO ×2 (14:28→18:11)
--- NOTE | 2021-03-13 16:30 | PM.IMPN ---
Progress Note: A&P Assessment and Plan (1) Sepsis: Code(s): A41.9 - Sepsis, unspecified organism Status: Acute Assessment and Plan: Secondary to acute calculous cholecystitis and liver abscess. CT showed Acute calculus cholecystitis with adjacent intrahepatic abscesses and Small pleural effusions. Patient has received IV fluids for resuscitation and his lactate has normalized His blood pressure has been adequate and he has not required any vasopressors On 03/11 - Successful ultrasound-guided cholecystostomy tube placement. The liver abscesses appear to be adjusted into the gallbladder and are expected to improve after cholecystectomy and weed antibiotics. Blood culture are growing pansensitive Klebsiella pneumoniae. Patient was initially started on empiric Zosyn. Per ID recommendation we will switch him to cefdinir for a total of 3 week duration of antibiotics (2) Liver abscess: Onset Date: Unknown Code(s): K75.0 - Abscess of liver Status: Acute Assessment and Plan: There are abscesses in the liver abutting the gallbladder measuring up to 6.8 x 1.5 cm. Expected to drain with cholecystectomy. Continue p.o. antibiotic. (3) Acute calculous cholecystitis: Onset Date: ~03/08/21 Code(s): K80.00 - Calculus of gallbladder with acute cholecystitis without obstruction Status: Acute Assessment and Plan: Ultrasound images demonstrate the catheter within the gallbladder. 5 mL bile was aspirated. Cholecystotomy drain in place. (4) Thrombocytopenia: Onset Date: ~03/10/21 Code(s): D69.6 - Thrombocytopenia, unspecified Status: Acute Assessment and Plan: Likely secondary to sepsis Patient has received 2 units of platelets 03/11 for procedure. The platelet count has slightly dropped today from 50 to 41. Continue to monitor and transfuse as needed (5) Abnormal coagulation profile: Code(s): R79.1 - Abnormal coagulation profile Status: Acute Assessment and Plan: Likely mild DIC. His fibrinogen was adequate Vitamin K was given 03/11 (6) Transaminitis: Code(s): R74.01 - Elevation of levels of liver transaminase levels Status: Acute Assessment and Plan: Likely secondary to sepsis and liver abscess Viral hepatitis panel is negative Hold statin Bilirubin level is decreasing from 1.7-1.5. AST has improved from 123to 64. ALT has improved from 151 to 103. Alkaline phosphatase remains normal in the 87-92 range Monitor LFTs which are improving Additional Plan DVT prophylaxis -SCDs Nutrition -liquid diet, advanced per General surgery: Because of his previous gastric bypass he will need 4-5 small meals per day provided by our Nutrition Department. Code Status - Full Code Ecourage incentive spirometry, up in chair, daily PT and OT Subjective Date/time seen: 03/13/21 11:30 S: Patient is examined at the bedside. He is very hard of hearing while his hearingaids were charging. NO evidence of distress. Review of Systems Review of Systems: All systems reviewed & are unremarkable except as noted in HPI and below (HPI) Constitutional: Constitutional: Reports as per HPI and Reports no additional constitutional complaints Eyes: Eyes: Reports as per HPI ENT: Reports as per HPI, Denies Normal hearing present, Denies dysphagia and Denies epistaxis Comments: Patient is very hard of hearing. Cardiovascular: Cardiovascular: Reports as per HPI, Reports no additional cardiovascular complaints, Denies dyspnea and Denies dyspnea on exertion Respiratory: Respiratory: Reports as per HPI, Denies chest congestion, Denies cough, Denies dyspnea, Denies dyspnea on exertion and Denies wheezing Gastrointestinal: Gastrointestinal: Denies as per HPI, Reports abdominal pain, Denies constipation, Denies dysphagia and Denies diarrhea Genitourinary: Genitourinary: Reports no additional male genitourinary complaints Musculoskeletal: Musculoskeleta
--- NOTE | 2021-03-13 17:43 | PDONCCN ---
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 He has been complaining of tiredness and fatigue. CT scan of abdomen and pelvis showed acute calculous cholecystitis with intrahepatic abscesses. Patient have ultrasound-guided cholecystostomy tube placement on March 10 and cultures were obtained. [place] [address] and WBC was elevated at 26.4 with mild anemia. PTT was elevated at 40.9 with INR of 1.9. He denies any bleeding. Review of Systems - Review of Systems All systems reviewed & are unremarkable except as noted in HPI and bel - Neurologic Reports system reviewed and no additional complaints, except as documented, Reports abnormal speech (hoarse), Reports confusion, Reports focal weakness (worsening left-sided weakness), Reports weakness, Denies hearing normal, Denies frequent falls, Denies memory loss, Denies numbness, Denies seizure-like activity, Denies tingling PMFSH Medical History: Medical History (Last Updated 03/11/21 @ 14:57 by Cory Becerra MD) Depression High cholesterol Hypoalbuminemia Stroke Onset Date: 01/2020 Residual left-sided weakness, hoarseness, and cognitive deficit. Surgical History: Surgical History (Last Reviewed 03/11/21 @ 08:55 by Mariano Lu MD) History of arthroscopy of both knees History of gastric bypass . History of inguinal hernia repair Onset Date: 12/11/20 Right inguinal hernia repair with 6cm Parietex hernia mesh system. Family History: Family History (Last Reviewed 03/11/21 @ 08:55 by Mariano Lu MD) Mother Morbid obesity Heart disease Diabetes mellitus Father Asbestosis - Social History Social History: Social History (Last Reviewed 03/11/21 @ 08:55 by Mariano Lu MD) Alcohol Use: Alcohol intake: never Substance Use: Substance use: never Substance use type: does not use Others: Spiritual care concerns: No Smoking Status: Smoking status: Former smoker Tobacco type: cigarettes Tobacco type: cigars Tobacco type: smokeless tobacco Smokeless tobacco user: chewing tobacco Second hand tobacco smoke exposure: No Smoking Pack-years: Years smoked: 15 Comments: Additional smoking assessment comments: Quit smoking cigars in 1980, quit chewing tobacco in 2004 Meds Home Medications Medication Instructions Recorded Confirmed Type aspirin 81 mg chewable tablet 81 mg PO DAILY 12/02/20 03/10/21 History atorvastatin 40 mg tablet 40 mg PO HS 12/02/20 03/10/21 History buspirone 5 mg tablet 5 mg PO BID 12/02/20 03/10/21 History escitalopram oxalate 10 mg tablet 10 mg PO DAILY 12/02/20 03/10/21 History Allergies Allergy/AdvReac Type Severity Reaction Status Date / Time No Known Allergies Allergy Verified 01/13/21 14:04 Results - Labs CBC & Chem 7: 03/13/21 05:49 03/13/21 05:49 Labs: Short CBC 03/13/21 Range/Units 05:49 WBC 13.5 H (4.5-10.0) K/mm3 Hgb 11.7 L (14.0-18.0) g/dL Hct 33.3 L (42.0-52.0) % Plt Count 41 L (150-375) k/mm3 BMP 03/13/21 05:49 Sodium 133 L Potassium 3.6 Chloride 106 Carbon Dioxide 25 BUN 17 Creatinine 0.80 Glucose 92 Calcium 7.6 L Liver Function 03/13/21 Range/Units 05:49 Total Bilirubin 1.5 H (0.2-1.3) mg/dL AST 64 H (17-59) U/L ALT 103 H (4-50) U/L Alkaline Phosphatase 87 (38-126) U/L Albumin 2.0 L (3.5-5.1) g/dL Assessment and Plan - Additional Plan Thrombocytopenia with leukocytosis and mild anemia. Patient is a pleasant 70-year-o
[2021-03-13 20:11] LABS: Iron 34 ug/dL (49-181)
[2021-03-13 20:20] LABS: Percent Iron Saturation 15 % (20-50)
[2021-03-13 21:36] LABS: Folic Acid 15.6 ng/mL (2.76->20); Vitamin B12 > 1000.0 pg/mL (239-931)
[2021-03-13 22:00] VITALS: BP 117/63; PULSE 53; RESP 18; TEMP 36.4; O2SAT 95
[2021-03-14] MEDS: KCL 20 MEQ/0.45% NS 1,000 ML 50 ML IV CONT ×2 (02:54→20:31)
[2021-03-14 05:55] VITALS: BP 121/69; PULSE 57; RESP 16; TEMP 36.3; O2SAT 96
[2021-03-14 06:44] LABS: Hematocrit 35.5 % (42.0-52.0); Hemoglobin 12.1 g/dL (14.0-18.0); Immature Platelet Fraction Pct 12.8 % (0.9-11.2); Mean Corpuscular HGB Conc 34.1 g/dl (32-36); Mean Corpuscular Hemoglobin 33.1 pg (26-34); Mean Platelet Volume 12.9 fl (7.4-10.4); Platelet Count Result 78 k/mm3 (150-375); Red Blood Count 3.66 M/mm3 (4.6-6.20); Red Cell Distribution Width 14.9 % (11.5-14.5)
[2021-03-14 06:55] LABS: Alanine Aminotransferase 78 U/L (4-50); Alkaline Phosphatase 87 U/L (38-126); Anion Gap 6 mmol/L (8-16); Aspartate Amino Transferase 51 U/L (17-59); Bilirubin,Total 1.2 mg/dL (0.2-1.3); Blood Urea Nitrogen 12 mg/dL (9-20); Calcium 7.5 mg/dL (8.4-10.2); Carbon Dioxide 26 mmol/L (22-30); Chloride 103 mmol/L (98-107); Estimated CRCL calculation 96 ml/min; Estimated Glomerular Filt Rate > 60; Glucose 85 mg/dL (65-110); Magnesium 2.1 mg/dL (1.6-2.3); Potassium 3.8 mmol/L (3.4-5.0); Sodium 135 mmol/L (137-145)
[2021-03-14] MEDS: busPIRone HCL 5 MG TABLET PO ×2 (08:26→16:23)
[2021-03-14] MEDS: CEFDINIR 300 MG CAPSULE PO ×2 (08:27→18:02)
--- NOTE | 2021-03-14 09:31 | PM.IMPN ---
Progress Note: A&P Assessment and Plan (1) Sepsis: Code(s): A41.9 - Sepsis, unspecified organism Status: Acute Assessment and Plan: Secondary to acute calculous cholecystitis and liver abscess. CT showed Acute calculus cholecystitis with adjacent intrahepatic abscesses and Small pleural effusions. Patient has received IV fluids for resuscitation and his lactate has normalized His blood pressure has been adequate and he has not required any vasopressors On 03/11 - Successful ultrasound-guided cholecystostomy tube placement. The liver abscesses appear to be adjusted into the gallbladder and are expected to improve after cholecystectomy and weed antibiotics. Blood culture are growing pansensitive Klebsiella pneumoniae. Patient was initially started on empiric Zosyn. Per ID recommendation we will switch him to cefdinir for a total of 3 week duration of antibiotics. Mild rebound of leukocytosis from 13.5 yesterday to 16 today. Monitor the CBC. (2) Liver abscess: Onset Date: Unknown Code(s): K75.0 - Abscess of liver Status: Acute Assessment and Plan: There are abscesses in the liver abutting the gallbladder measuring up to 6.8 x 1.5 cm. Expected to drain with cholecystectomy. Continue p.o. antibiotic for total duration of treatment of 3 weeks. (3) Acute calculous cholecystitis: Onset Date: ~03/08/21 Code(s): K80.00 - Calculus of gallbladder with acute cholecystitis without obstruction Status: Acute Assessment and Plan: Ultrasound images demonstrate the catheter within the gallbladder. 5 mL bile was aspirated. Cholecystotomy drain in place. (4) Thrombocytopenia: Onset Date: ~03/10/21 Code(s): D69.6 - Thrombocytopenia, unspecified Status: Acute Assessment and Plan: Likely secondary to sepsis Patient has received 2 units of platelets 03/11 for procedure. The platelet count has improved from 41 yesterday to 78,000 today. Continue to monitor and transfuse as needed (5) Abnormal coagulation profile: Code(s): R79.1 - Abnormal coagulation profile Status: Acute Assessment and Plan: Likely mild DIC. His fibrinogen was adequate Vitamin K was given 03/11 (6) Transaminitis: Code(s): R74.01 - Elevation of levels of liver transaminase levels Status: Acute Assessment and Plan: Likely secondary to sepsis and liver abscess Viral hepatitis panel is negative Hold statin Bilirubin level is decreasing from 1.5 to 1.2. AST has improved from 64 to 51. ALT has improved from 103 to 78. Alkaline phosphatase remains normal in the 87-92 range Monitor LFTs which are improving (7) Iron deficiency: Code(s): E61.1 - Iron deficiency Status: Acute Assessment and Plan: Start oral supplementation with iron sulfate. Additional Plan DVT prophylaxis -SCDs Nutrition -regular diabetic diet, advanced per General surgery: Because of his previous gastric bypass he will need 4-5 small meals per day provided by our Nutrition Department. Code Status - Full Code Ecourage incentive spirometry, up in chair, daily PT and OT Subjective Date/time seen: 03/14/21 09:31 S: The patient is examined at the bedside. No complaints. Review of Systems Review of Systems: All systems reviewed & are unremarkable except as noted in HPI and below (HPI) Constitutional: Constitutional: Reports as per HPI, Reports no additional constitutional complaints and Denies daytime sleepiness Eyes: Eyes: Reports as per HPI ENT: Reports as per HPI, Denies Normal hearing present, Denies dysphagia and Denies epistaxis Cardiovascular: Cardiovascular: Reports as per HPI, Reports no additional cardiovascular complaints, Denies dyspnea and Denies dyspnea on exertion Respiratory: Respiratory: Reports as per HPI, Denies chest congestion, Denies cough, Denies dyspnea, Denies dyspnea on exertion and Denies wheezing Gastrointestinal: Gastrointestina
--- NOTE | 2021-03-14 09:34 | PM.PNGS ---
Progress Note: A&P Assessment and Plan (1) Acute calculous cholecystitis: Onset Date: ~03/08/21 Code(s): K80.00 - Calculus of gallbladder with acute cholecystitis without obstruction Status: Acute Assessment and Plan: This was shown by CT scan of the abdomen and pelvis on 03/10. It appears that there is a calcified stone at the neck of the gallbladder leading to the problem. . (2) Severe sepsis: Onset Date: ~03/10/21 Code(s): A41.9 - Sepsis, unspecified organism; R65.20 - Severe sepsis without septic shock Status: Acute Assessment and Plan: improving. No fever today. He is tolerating a diet. Blood cultures apparently growing a gram-negative. ----now ID'ed as Klebsiella pneumonia sensitive to Zosyn and also to Augmentin. (3) Liver abscess: Onset Date: Unknown Code(s): K75.0 - Abscess of liver Status: Acute Assessment and Plan: This appears to be directly adjacent to the gallbladder and hopefully will drain with the cholecystostomy tube and improve with the antibiotics. Change to Augmentin yesterday and white count popped up a little bit so recommend repeat tomorrow and continue current therapy. (4) Thrombocytopenia: Onset Date: ~03/10/21 Code(s): D69.6 - Thrombocytopenia, unspecified Status: Acute Assessment and Plan: I recommend avoiding subq heparin and Lovenox and the aspirin documented as a home med. Has received platelet transfusions. Platelet count 78,000 today continue to monitor. Discussed with Dr. Barrera and will get Hematology consultation since in approximately 4-6 weeks patient should consider having a cholecystectomy. However, we would want him to have a more normal platelet count if at all possible. (5) History of stroke: Code(s): Z86.73 - Personal history of transient ischemic attack (TIA), and cerebral infarction without residual deficits Status: Acute (6) Hypoalbuminemia: Code(s): E88.09 - Other disorders of plasma-protein metabolism, not elsewhere classified Status: Acute Assessment and Plan: Possibly related to his previous gastric bypass. Patient probably has not been eating well for the last 2 weeks at home in view of the low pre-albumin result. Could also be related to his recent onset of acute cholecystitis and sepsis with decreased appetite. Will see if he can tolerate a diet and then add Ensure to boost his protein calories. Because of his previous gastric bypass he will need 4-5 small meals per day provided by our Nutrition Department. Additional Plan I will allow patient low-fat diet if he is also feeling well. Appreciate dietary consultation and starting patient on Ensure compact. Patient has had probably a vertical banded gastroplasty in the past so should have low-fat meals 4-5 small meals per day. Appreciate hematology consultation regarding thrombocytopenia. Subjective Subjective Date/Time Seen: 03/14/21 09:34 Post Op day: 3 (Status post cholecystostomy drain placement) Patient reports: no new complaints Interval history: Patient tolerating low-fat diet. Review of Systems Review of Systems: All systems reviewed & are unremarkable except as noted in HPI and below ROS unobtainable: Yes other ( Limited secondary to memory issues) Constitutional: Constitutional: Reports as per HPI, Reports no additional constitutional complaints, Denies chills, Denies fever(s), Denies frequent falls, Reports poor appetite ( as per nurse) and Reports weakness Eyes: Eyes: Reports as per HPI and Reports other ( no obvious icterus) Respiratory: Respiratory: Reports no additional respiratory complaints, Denies cough, Denies hemoptysis, Denies dyspnea, Denies dyspnea on exertion and Denies wheezing Gastrointestinal: Gastrointestinal: Reports as per HPI, Reports no additional gastrointestinal complaints, Denies change in bowel habits, Denies change in stool character
[2021-03-14 13:19] LABS: Haptoglobin 221 mg/dL (43-212)
[2021-03-14 14:00] VITALS: BP 106/66; PULSE 60; RESP 17; TEMP 36.7; O2SAT 95
[2021-03-14] MEDS: FERROUS SULFATE 324 MG TABLET PO (16:23)
[2021-03-14 21:44] VITALS: BP 134/76; PULSE 85; RESP 18; TEMP 37.2; O2SAT 94
[2021-03-14 22:35] VITALS: O2SAT 92
[2021-03-15 06:00] VITALS: BP 104/60; PULSE 63; RESP 18; TEMP 36.6; O2SAT 94
[2021-03-15] MEDS: CEFDINIR 300 MG CAPSULE PO ×2 (06:02→18:01)
[2021-03-15 06:32] LABS: Hematocrit 32.9 % (42.0-52.0); Hemoglobin 11.4 g/dL (14.0-18.0); Mean Corpuscular HGB Conc 34.7 g/dl (32-36); Mean Corpuscular Hemoglobin 32.8 pg (26-34); Mean Corpuscular Volume 94.5 fl (80-100); Mean Platelet Volume 11.1 fl (7.4-10.4); Red Blood Count 3.48 M/mm3 (4.6-6.20); Red Cell Distribution Width 15.1 % (11.5-14.5)
[2021-03-15 06:37] LABS: Alanine Aminotransferase 62 U/L (4-50); Alkaline Phosphatase 73 U/L (38-126); Anion Gap 3 mmol/L (8-16); Aspartate Amino Transferase 41 U/L (17-59); Bilirubin,Total 0.9 mg/dL (0.2-1.3); Blood Urea Nitrogen 9 mg/dL (9-20); Calcium 7.4 mg/dL (8.4-10.2); Carbon Dioxide 26 mmol/L (22-30); Chloride 106 mmol/L (98-107); Estimated CRCL calculation 96 ml/min; Estimated Glomerular Filt Rate > 60; Glucose 88 mg/dL (65-110); Sodium 135 mmol/L (137-145)
[2021-03-15] MEDS: busPIRone HCL 5 MG TABLET PO ×2 (08:47→16:45)
[2021-03-15] MEDS: FERROUS SULFATE 324 MG TABLET PO ×2 (08:47→16:45)
[2021-03-15] MEDS: ACETAMINOPHEN 325 MG TABLET 650 MG PO (08:54)
[2021-03-15 08:58] LABS: Platelet Count Result 158 k/mm3 (150-375)
--- NOTE | 2021-03-15 10:45 | PM.PNGS ---
Progress Note: A&P Assessment and Plan (1) Acute calculous cholecystitis: Onset Date: ~03/08/21 Code(s): K80.00 - Calculus of gallbladder with acute cholecystitis without obstruction Status: Acute Assessment and Plan: This was shown by CT scan of the abdomen and pelvis on 03/10. It appears that there is a calcified stone at the neck of the gallbladder leading to the problem. . (2) Severe sepsis: Onset Date: ~03/10/21 Code(s): A41.9 - Sepsis, unspecified organism; R65.20 - Severe sepsis without septic shock Status: Acute Assessment and Plan: improving. No fever today. He is tolerating a diet. Blood cultures apparently growing a gram-negative. ----now ID'ed as Klebsiella pneumonia sensitive to Zosyn and also to Augmentin. culture from the bile also showed Klebsiella with the same sensitivity profile. Plan is for a total of 2 weeks of antibiotics because of his blood cultures being positive. He will go home on the current p.o. antibiotic (3) Liver abscess: Onset Date: Unknown Code(s): K75.0 - Abscess of liver Status: Acute Assessment and Plan: This appears to be directly adjacent to the gallbladder and hopefully will drain with the cholecystostomy tube and improve with the antibiotics. Changed to Augmentin 1022 and white count popped up a little bit but back down to 13,000 today. So will continue current therapy. Consider repeating CBC again in a.m. to be sure this continues to downward trend. (4) Thrombocytopenia: Onset Date: ~03/10/21 Code(s): D69.6 - Thrombocytopenia, unspecified Status: Acute Assessment and Plan: I recommend avoiding subq heparin and Lovenox and the aspirin documented as a home med. Has received platelet transfusions. Platelet count 158,000 today continue to monitor. appreciate Hematology consultation since in approximately 4-6 weeks patient should consider having a cholecystectomy. However, we would want him to have a more normal platelet count if at all possible. will check this again as an outpatient prior to any surgery. (5) History of stroke: Code(s): Z86.73 - Personal history of transient ischemic attack (TIA), and cerebral infarction without residual deficits Status: Acute Assessment and Plan: this leads to some memory loss 0 will have the nurses go over care of the drain and dressing changes with his tomorrow when 1 person will be allowed to visit each patient ( beginning 03/16/2021). (6) Hypoalbuminemia: Code(s): E88.09 - Other disorders of plasma-protein metabolism, not elsewhere classified Status: Acute Assessment and Plan: Possibly related to his previous gastric bypass. Patient probably has not been eating well for the last 2 weeks at home in view of the low pre-albumin result. Could also be related to his recent onset of acute cholecystitis and sepsis with decreased appetite. Will see if he can tolerate a diet and then add Ensure to boost his protein calories. Because of his previous gastric bypass he will need 4-5 small meals per day provided by our Nutrition Department. Additional Plan I will allow patient low-fat diet if he is also feeling well. Appreciate dietary consultation and starting patient on Ensure compact. Patient has had probably a vertical banded gastroplasty in the past so should have low-fat meals 4-5 small meals per day. Appreciate hematology consultation regarding thrombocytopenia. Subjective Subjective Date/Time Seen: 03/15/21 08:45 Patient reports: no new complaints and feels better Interval history: Status post cholecystostomy drain placement. He seems to be improving. Of note today his platelets are back in normal range. White count is somewhat down now on his 2nd to 3rd day of oral antibiotics. Review of Systems Review of Systems: All systems reviewed & are unremarkable except as noted in HPI
--- NOTE | 2021-03-15 12:37 | PM.IMPN ---
Progress Note: A&P Assessment and Plan (1) Sepsis: Code(s): A41.9 - Sepsis, unspecified organism Status: Acute Assessment and Plan: Secondary to acute calculous cholecystitis and liver abscess. CT showed Acute calculus cholecystitis with adjacent intrahepatic abscesses and Small pleural effusions. Patient has received IV fluids for resuscitation and his lactate has normalized His blood pressure has been adequate and he has not required any vasopressors On 03/11 - Successful ultrasound-guided cholecystostomy tube placement. The liver abscesses appear to be adjusted into the gallbladder and are expected to improve after cholecystectomy and weed antibiotics. Blood culture are growing pansensitive Klebsiella pneumoniae. Patient was initially started on empiric Zosyn. Per ID recommendation we will switch him to cefdinir for a total of 3 week duration of antibiotics. Mild rebound of leukocytosis from 13.5 on 03/13 to 16 yesterday. On today's Lab WBC is down to 13. Monitor the CBC. Bring delightful on Tuesday to educate her about dressing changes. Plan for discharge tomorrow 03/16/2021. (2) Liver abscess: Onset Date: Unknown Code(s): K75.0 - Abscess of liver Status: Acute Assessment and Plan: There are abscesses in the liver abutting the gallbladder measuring up to 6.8 x 1.5 cm. Expected to drain with cholecystectomy. Continue Cefdinir for total duration of treatment of 3 weeks. (3) Acute calculous cholecystitis: Onset Date: ~03/08/21 Code(s): K80.00 - Calculus of gallbladder with acute cholecystitis without obstruction Status: Acute Assessment and Plan: Ultrasound images demonstrate the catheter within the gallbladder. 5 mL bile was aspirated. Cholecystotomy drain in place. (4) Thrombocytopenia: Onset Date: ~03/10/21 Code(s): D69.6 - Thrombocytopenia, unspecified Status: Acute Assessment and Plan: Likely secondary to sepsis Patient has received 2 units of platelets 03/11 for procedure. The platelet count has improved from 78 yesterday to 158,000 today. Continue to monitor and transfuse as needed (5) Abnormal coagulation profile: Code(s): R79.1 - Abnormal coagulation profile Status: Acute Assessment and Plan: Likely mild DIC. His fibrinogen was adequate Vitamin K was given 03/11 (6) Transaminitis: Code(s): R74.01 - Elevation of levels of liver transaminase levels Status: Acute Assessment and Plan: Likely secondary to sepsis and liver abscess Viral hepatitis panel is negative Hold statin Bilirubin level is decreasing from 1.2 to 0.9. AST has improved from 51 to 41. ALT has improved from 78 to 62. Alkaline phosphatase remains normal in the 73-92 range Monitor LFTs which are improving (7) Iron deficiency: Code(s): E61.1 - Iron deficiency Status: Acute Assessment and Plan: Start oral supplementation with iron sulfate. (8) Back pain: Code(s): M54.9 - Dorsalgia, unspecified Status: Acute Assessment and Plan: Lidocaine patch PRN. Additional Plan DVT prophylaxis -SCDs Nutrition -regular diabetic diet, advanced per General surgery: Because of his previous gastric bypass he will need 4-5 small meals per day provided by our Nutrition Department. Code Status - Full Code Ecourage incentive spirometry, up in chair, daily PT and OT Subjective Date/time seen: 03/15/21 12:37 S: Patient was examined at the bedside. He complains of back pain. able and afebrile. Review of Systems Review of Systems: All systems reviewed & are unremarkable except as noted in HPI and below (HPI) Constitutional: Constitutional: Reports as per HPI, Reports no additional constitutional complaints and Denies daytime sleepiness Eyes: Eyes: Reports as per HPI ENT: Reports as per HPI, Denies Normal hearing present, Denies dysphagia and Denies epistaxis Cardiovascular: Cardiovasc
[2021-03-15 14:55] VITALS: BP 118/62; PULSE 78; RESP 14; TEMP 36.7; O2SAT 93
[2021-03-15] MEDS: LIDOCAINE 5% PATCH 1 PATCH TRANSDERM (16:44)
[2021-03-15] MEDS: KCL 20 MEQ/0.45% NS 1,000 ML 50 ML IV CONT (17:18)
[2021-03-15 20:50] VITALS: O2SAT 94
[2021-03-15 21:47] VITALS: BP 100/61; PULSE 59; RESP 16; TEMP 37; O2SAT 98
[2021-03-16 05:31] VITALS: BP 107/62; PULSE 70; RESP 16; TEMP 36.6; O2SAT 93
[2021-03-16] MEDS: CEFDINIR 300 MG CAPSULE PO (06:18)
[2021-03-16 07:52] LABS: Alanine Aminotransferase 53 U/L (4-50); Albumin Level 2.1 g/dL (3.5-5.1); Alkaline Phosphatase 64 U/L (38-126); Anion Gap 4 mmol/L (8-16); Aspartate Amino Transferase 39 U/L (17-59); Bilirubin,Total 0.8 mg/dL (0.2-1.3); Blood Urea Nitrogen 7 mg/dL (9-20); Calcium 7.7 mg/dL (8.4-10.2); Carbon Dioxide 25 mmol/L (22-30); Chloride 105 mmol/L (98-107); Estimated CRCL calculation 110 ml/min; Estimated Glomerular Filt Rate > 60; Glucose 92 mg/dL (65-110); Magnesium 2.1 mg/dL (1.6-2.3); Potassium 4.4 mmol/L (3.4-5.0); Sodium 134 mmol/L (137-145)
[2021-03-16 08:12] LABS: Hematocrit 34.1 % (42.0-52.0); Hemoglobin 11.7 g/dL (14.0-18.0); Mean Corpuscular HGB Conc 34.3 g/dl (32-36); Mean Corpuscular Hemoglobin 33.2 pg (26-34); Mean Corpuscular Volume 96.9 fl (80-100); Mean Platelet Volume 10.7 fl (7.4-10.4); Platelet Count Result 216 k/mm3 (150-375); Red Blood Count 3.52 M/mm3 (4.6-6.20); Red Cell Distribution Width 15.1 % (11.5-14.5); White Blood Count 12.3 K/mm3 (4.5-10.0)
--- NOTE | 2021-03-16 08:36 | PM.IMHP ---
H&P: HPI History of Present Illness Date/Time: 03/16/21 08:36 [facility] Past Medical History Medical History (Updated 03/15/21 @ 13:02 by Joan Barrera MD) Depression High cholesterol Hypoalbuminemia Stroke (01/2020) Residual left-sided weakness, hoarseness, and cognitive deficit. Surgical History Surgical History (Updated 03/13/21 @ 17:48 by Rene Meza MD) History of arthroscopy of both knees History of gastric bypass . History of inguinal hernia repair (12/11/20) Right inguinal hernia repair with 6cm Parietex hernia mesh system. Family History Family History Mother Morbid obesity Heart disease Diabetes mellitus Father Asbestosis Social History Social History Social History: Surrogate decision maker: Mayra Longoria, . Code status: Full code. Years smoked: 15 Smoking status: Former smoker Tobacco type: cigarettes, cigars and smokeless tobacco Smokeless tobacco user: chewing tobacco Second hand tobacco smoke exposure: No Additional smoking assessment comments: Quit smoking cigars in 1980, quit chewing tobacco in 2004 Alcohol intake: never Substance use: never Substance use type: does not use Additional living arrangements comments: Lives with his , Mayra. They have 2 grown children. Additional occupation/education comments: Retired from [employer]. Sexual Orientation (if Verbalized by the Patient): Straight or Heterosexual Spiritual care concerns: No Meds Home Medications and Allergies Home Medications Medication Instructions Recorded Confirmed Type aspirin 81 mg chewable tablet 81 mg PO DAILY 12/02/20 03/10/21 History atorvastatin 40 mg tablet 40 mg PO HS 12/02/20 03/10/21 History buspirone 5 mg tablet 5 mg PO BID 12/02/20 03/10/21 History escitalopram oxalate 10 mg tablet 10 mg PO DAILY 12/02/20 03/10/21 History Allergies Allergy/AdvReac Type Severity Reaction Status Date / Time No Known Allergies Allergy Verified 01/13/21 14:04 Vital Signs Vital Signs - 24 hr 03/15/21 14:55 03/15/21 20:50 03/15/21 21:47 Temperature 98.0 F 98.6 F Pulse Rate 78 59 L Respiratory Rate 14 16 Blood Pressure 118/62 100/61 Pulse Oximetry 93 94 98 03/16/21 05:31 Temperature 97.8 F Pulse Rate 70 Respiratory Rate 16 Blood Pressure 107/62 Pulse Oximetry 93 H&P: Results Labs Labs: Short CBC 03/15/21 03/16/21 Range/Units 06:00 07:31 WBC 13.0 H 12.3 H (4.5-10.0) K/mm3 Hgb 11.4 L 11.7 L (14.0-18.0) g/dL Hct 32.9 L 34.1 L (42.0-52.0) % Plt Count 158 D 216 (150-375) k/mm3 BMP 03/16/21 07:31 Sodium 134 L Potassium 4.4 Chloride 105 Carbon Dioxide 25 BUN 7 L Creatinine 0.60 L Glucose 92 Calcium 7.7 L Liver Function 03/16/21 Range/Units 07:31 Total Bilirubin 0.8 (0.2-1.3) mg/dL AST 39 (17-59) U/L ALT 53 H (4-50) U/L Alkaline Phosphatase 64 (38-126) U/L Albumin 2.1 L (3.5-5.1) g/dL Quality VTE Prophylaxis VTE prophylaxis: mechanical ordered
[2021-03-16] MEDS: busPIRone HCL 5 MG TABLET PO (09:04)
[2021-03-16] MEDS: FERROUS SULFATE 324 MG TABLET PO (09:04)
--- NOTE | 2021-03-16 14:39 | PM.DS ---
DS: Admitting Diagnosis Discharge Date 03/16/2021 Admitting Diagnosis Sepsis cholecystitis DS: Discharge Diagnosis Discharge Diagnosis (1) Sepsis: Code(s): A41.9 - Sepsis, unspecified organism Status: Acute Assessment and Plan: Secondary to acute calculous cholecystitis and adjacent liver abscess. CT showed Acute calculus cholecystitis with adjacent intrahepatic abscesses and Small pleural effusions. Patient has received IV fluids for resuscitation and his lactate has normalized His blood pressure has been adequate and he has not required any vasopressors On 03/11 - Successful ultrasound-guided cholecystostomy tube placement. The liver abscesses appear to be adjacent to the gallbladder and are expected to improve after cholecystectomy and antibiotics. Blood culture are growing pansensitive Klebsiella pneumoniae. Patient was initially started on empiric Zosyn. Per ID recommendation switched him to cefdinir for a total of 3 week duration of antibiotics (2 more weeks of cefdinir at discharge, 20 tablets prescribed). Mild leukocytosis persists likely reactive from his underlying cholecystitis and cholecystostomy tube. He is okay to be discharged per General surgery with continued cholecystostomy drain and will be planned for cholecystectomy in 4-6 weeks (2) Liver abscess: Onset Date: Unknown Code(s): K75.0 - Abscess of liver Status: Acute Assessment and Plan: There are abscesses in the liver abutting the gallbladder measuring up to 6.8 x 1.5 cm. Expected to drain with cholecystectomy. Continue Cefdinir for total duration of treatment of 3 weeks. Till 03/23/2021 (3) Acute calculous cholecystitis: Onset Date: ~03/08/21 Code(s): K80.00 - Calculus of gallbladder with acute cholecystitis without obstruction Status: Acute Assessment and Plan: Ultrasound images demonstrate the catheter within the gallbladder. 5 mL bile was aspirated. Cholecystotomy drain in place. (4) Thrombocytopenia: Onset Date: ~03/10/21 Code(s): D69.6 - Thrombocytopenia, unspecified Status: Acute Assessment and Plan: Likely secondary to sepsis Patient has received 2 units of platelets 03/11 for procedure. The platelet count has improved from 78 yesterday to 158,000 today. Continue to monitor and transfuse as needed (5) Abnormal coagulation profile: Code(s): R79.1 - Abnormal coagulation profile Status: Acute Assessment and Plan: Likely mild DIC. His fibrinogen was adequate Vitamin K was given 03/11 (6) Transaminitis: Code(s): R74.01 - Elevation of levels of liver transaminase levels Status: Acute Assessment and Plan: Likely secondary to sepsis and liver abscess Viral hepatitis panel is negative Statin was on hold Bilirubin level is decreasing from 1.2 to 0.9. AST has improved from 51 to 41. ALT has improved from 78 to 62. Alkaline phosphatase remains normal in the 73-92 range Monitor LFTs which are improving and almost back to normal will resume statin at discharge (7) Iron deficiency: Code(s): E61.1 - Iron deficiency Status: Acute Assessment and Plan: Start oral supplementation with iron sulfate. (8) Back pain: Code(s): M54.9 - Dorsalgia, unspecified Status: Acute Assessment and Plan: Lidocaine patch PRN. DS: Summary Hospital Course Hospital Course: See above Time Spent with Patient Time attestation: Total time spent providing and/or coordinating discharge services: 45 minutes Exam Narrative: General: Pt is alert awake and in NAD, impaired hearing Lungs/Chest: Clear BS B/L, No crackles or wheezing. Cardiac: RRR. Normal S1 S2. No murmurs Circulation: Pedal pulses are intact and symmetrical. Abdomen: Decreased bowel sounds.. Soft. Nondistended no guarding, [place] drain in place with bilious drainage Extremities: No clubbing, cyanosis or edema. Warm Neurologic: Alert and conversan
--- NOTE | 2021-03-16 14:40 | PM.PNGS ---
Progress Note: A&P Assessment and Plan (1) Acute calculous cholecystitis: Onset Date: ~03/08/21 Code(s): K80.00 - Calculus of gallbladder with acute cholecystitis without obstruction Status: Acute Assessment and Plan: S/p cholecystostomy tube placement by IR on 03/11/21. Bile cx grew Klebsiella pneum. Continue to improve. Not having any abdominal pain, abdominal exam is benign, and tolerating a diet. Okay to discharge from our standpoint. Would recommend to continue a low fat diet. He needs to monitor the cholecystostomy tube output and bring the recording to his f/u appointment. I discussed this with him and his . They have already been educated on how to manage and empty the drain. F/u with Dr. Becerra in 3 weeks to further discuss surgery. (2) Severe sepsis: Onset Date: ~03/10/21 Code(s): A41.9 - Sepsis, unspecified organism; R65.20 - Severe sepsis without septic shock Status: Acute Assessment and Plan: Source is #1 above. Improved. WBC trending down and remains afebrile. Blood cx grew Klebsiella pneum. Bile cx grew the same with same sensitivity profile. Continue cholecystostomy tube and abx per ID. (3) Liver abscess: Onset Date: Unknown Code(s): K75.0 - Abscess of liver Status: Acute Assessment and Plan: This appears to be directly adjacent to the gallbladder and hopefully will drain with the cholecystostomy tube and improve with the antibiotics. (4) Bacteremia due to Klebsiella pneumoniae: Code(s): R78.81 - Bacteremia; B96.1 - Klebsiella pneumoniae [K. pneumoniae] as the cause of diseases classified elsewhere Status: Acute Assessment and Plan: Hospitalist spoke with ID who gave recommendations on antibiotic course. Continue cefdinir per ID recommendations (total of 3 weeks). (5) Thrombocytopenia: Onset Date: ~03/10/21 Code(s): D69.6 - Thrombocytopenia, unspecified Status: Acute Assessment and Plan: Improved with platelets up to 216,000 now. Would agree okay to restart ASA 81 mg daily on discharge. We would plan to recheck this as an outpatient prior to surgery. (6) History of stroke: Code(s): Z86.73 - Personal history of transient ischemic attack (TIA), and cerebral infarction without residual deficits Status: Acute (7) Hypoalbuminemia: Code(s): E88.09 - Other disorders of plasma-protein metabolism, not elsewhere classified Status: Acute Assessment and Plan: Continue few small frequent meals with supplements. Additional Plan I have discussed the patient's case and plan of care with Dr. Becerra. Subjective Subjective Date/Time Seen: 03/16/21 12:50 Patient reports: no new complaints, tolerating a regular diet (low fat diet), flatus, bowel movement and afebrile Interval history: Patient seen and examined this afternoon. He denies any abdominal pain, nausea, or vomiting. He is tolerating a diet. No other complaints at this time. His is at the bedside and reports that the nurses educated their daughter on how to empty/record the drain output and change the dressing. Review of Systems Review of Systems: All systems reviewed & are unremarkable except as noted in HPI and below Constitutional: Constitutional: Reports no additional constitutional complaints, Denies chills and Denies fever(s) Gastrointestinal: Gastrointestinal: Reports as per HPI and Reports no additional gastrointestinal complaints Exam Const: General: comfortable, no acute distress and alert Orientation/consciousness: patient oriented x3 GI: Inspection: non-distended GI Palp: Yes Soft to palpation, No Tenderness to palpation present (GI) and No Guarding due to palpation present (GI) Auscultation: normal bowel sounds Other: RUQ percutaneous cholecystostomy tube in place with dressing clean, dry, and intact. There is brown/green bilious-appearing drainage in the bag. Skin: General skin exam: normal c
[2021-03-16 14:45] VITALS: BP 111/64; PULSE 64; RESP 12; TEMP 36.7; O2SAT 94
[2021-03-19 23:22] LABS: Platelet Antibody, Direct IgG NEGATIVE (NEGATIVE)
== END 2021-03-16 15:55 | disposition home health service (06) | DRG 871 ==
LOC: ANHED 11:32 → ANHICU 20:50 → ANH3MEDSUR 03-12 20:13 → ANHICU 03-19 14:10
PROVIDERS: Emergency Medicine; Internal Medicine; Internal Medicine Hematology & Oncology; Physician Assistant; Surgery; Admitting Provider Family Medicine; Emergency Provider Emergency Medicine; Visit Provider Internal Medicine
DX: A41.89 Other specified sepsis (principal); K75.0 Abscess of liver; K80.00 Calculus of gallbladder with acute cholecystitis without obstruction; I69.354 Hemiplegia and hemiparesis following cerebral infarction affecting left non-dominant side; I69.319 Unspecified symptoms and signs involving cognitive functions following cerebral infarction; R65.20 Severe sepsis without septic shock; E88.09 Other disorders of plasma-protein metabolism, not elsewhere classified; E61.1 Iron deficiency; D69.6 Thrombocytopenia, unspecified; R79.1 Abnormal coagulation profile; E78.00 Pure hypercholesterolemia, unspecified; R74.01 Elevation of levels of liver transaminase levels; F32.A Depression, unspecified; F41.9 Anxiety disorder, unspecified; M54.9 Dorsalgia, unspecified; Z28.21 Immunization not carried out because of patient refusal; Z79.82 Long term (current) use of aspirin; Z79.899 Other long term (current) drug therapy; Z87.891 Personal history of nicotine dependence; Z98.84 Bariatric surgery status
CPT/HCPCS: 36415; 36430; 36600; 47490; 71045; 74177; 80048; 80053; 80074; 80076; 81001; 82607; 82728; 82746; 82805; 83010; 83540; 83550; 83605; 83615; 83690; 83735; 84134; 84484; 85025; 85027; 85055; 85384; 85610; 85730; 86023; 86850; 86900; 86901; 87040; 87070; 87075; 87077; 87086; 87088; 87186; 87205; 93005; 96361; 96365; 96367; 97110; 97116; 97162; 97165; 97530; 97535; 99285; A9270; C1729; J0131; J2543; J3430; J7030; J7050; J7120; P9034; Q9967

== ENCOUNTER 2021-04-01 10:54 | Outpatient (CLI) | payer MEDICARE, SELFPAY ==
[2021-04-01 12:08] LABS: Basophils Absolute Auto 0.1 K/mm3 (0.0-0.1); Basophils Percent Auto 0.5 % (0.2-1.2); Eosinophils Absolute Auto 0.3 K/mm3 (0-0.3); Hematocrit 42.8 % (42.0-52.0); Hemoglobin 14.1 g/dL (14.0-18.0); Immature Granulocyte Absolute 0.05 K/mm3 (0.00-0.031); Immature Granulocyte Percent A 0.3 % (0-0.5); Lymphocytes Absolute Auto 1.77 K/mm3 (0.9-3.2); Mean Corpuscular HGB Conc 32.9 g/dl (32-36); Mean Corpuscular Hemoglobin 32.4 pg (26-34); Mean Corpuscular Volume 98.4 fl (80-100); Mean Platelet Volume 9.8 fl (7.4-10.4); Neutrophils Absolute Auto 11.5 K/mm3 (1.3-6.7); Neutrophils Percent Auto 78.2 % (45.5-73.1); Platelet Count Result 418 k/mm3 (150-375); Red Blood Count 4.35 M/mm3 (4.6-6.20); Red Cell Distribution Width 14.3 % (11.5-14.5); White Blood Count 14.8 K/mm3 (4.5-10.0)
[2021-04-01 12:28] LABS: Alanine Aminotransferase 18 U/L (4-50); Albumin Level 3.6 g/dL (3.5-5.1); Alkaline Phosphatase 78 U/L (38-126); Anion Gap 7 mmol/L (8-16); Aspartate Amino Transferase 24 U/L (17-59); Bilirubin,Total 0.5 mg/dL (0.2-1.3); Blood Urea Nitrogen 13 mg/dL (9-20); Calcium 9.3 mg/dL (8.4-10.2); Carbon Dioxide 26 mmol/L (22-30); Chloride 103 mmol/L (98-107); Estimated Glomerular Filt Rate > 60; Glucose 99 mg/dL (65-110); Potassium 4.6 mmol/L (3.4-5.0); Sodium 136 mmol/L (137-145)
== END 2021-04-01 10:55 | disposition home or self-care (01) ==
PROVIDERS: Visit Provider Surgery
DX: K80.00 Calculus of gallbladder with acute cholecystitis without obstruction (principal)
CPT/HCPCS: 36415; 80053; 85025

== ENCOUNTER → 2021-04-06 15:04 | Outpatient (CLI) | payer MEDICARE, SELFPAY ==
--- NOTE | ~2021-04-06 | CT_ITS ---
EXAMINATION: CT abdomen pelvis w con DATE: 04/06/2021 15:39 INDICATION: Cholelithiasis with acute cholecystitis TECHNIQUE: Computed tomography (CT) of the abdomen and pelvis was performed with 100 mL Omnipaque-350 intravenous contrast. Automated exposure control and iterative reconstruction technique were employe d. The dose-length product was 462.30 mGy-cm. COMPARISON: 03/10/2021 FINDINGS: Centrilobular groundglass opacities and small nodules clustered in the basilar segments of the right lower lobe consistent with aspiration or pneumonia. Heart size is normal. No pericardial or pleural e ffusion. Small sliding-type hiatal hernia with change of prior Shaina-en-Y gastric bypass procedure. Ti ny splenic calcific lesions consistent with old granulomatous disease. Pancreas and bilateral adrenal glands are normal. 2 mm nonobstructing stone in an inferior calyx of the left kidney. Small regions of cortical scarring at the left kidney. Right kidney is normal. Interval placement of percutaneous cholecystostomy tube with loop formed in the lumen of the gallblad fabrizio which contains small amount of fluid but is no longer abnormally distended. Interval decrease in the amount of surrounding inflammatory stranding. Residual gallstone in the region of the neck of the gallbladder. Small region of decreased enhancement in the liver along the gallbladder fossa likely r epresenting interval decompression of the previously seen small hepatic abscesses. There is a small a mount of pericholecystic fluid the gallbladder fossa but no residual fluid-filled intrahepatic absces s. Postoperative changes along the tip the cecum likely related to prior appendectomy. There is moderate colonic diverticulosis with a sigmoid predominance. There is no adjacent inflammatory change to sug gest diverticulitis. No bowel obstruction. No free intraperitoneal gas or fluid. No pathologically en larged abdominal or pelvic lymphadenopathy. Mild lumbar levocurvature with severe spondylosis. Small sclerotic bone islands at the left acetabulum and right femoral head and neck. Partial ankylosis of t he right sacroiliac joint. IMPRESSION: 1. Cholelithiasis and acute cholecystitis with improvement in the prior gallbladder distention and bojroquez rrounding inflammatory change post interval placement of a percutaneous cholecystostomy tube which is in expected position. 2. Interval improvement with decompression of a prior small intrahepatic abscess along the gallbladde r fossa. 3. Lung disease in the basilar right lower lobe consistent with aspiration and/or pneumonia. 4. Small sliding-type hiatal hernia with change of prior Shaina-en-Y gastric bypass. 5. Moderate sigmoid diverticulosis. Reviewed, dictated and finalized at location A. FORMER IMPRESSION: 1. Cholelithiasis and acute cholecystitis with improvement in the prior gallbla dder distention and surrounding inflammatory change post interval placement of a percutaneous cholecystostomy tube which is in expected position. 2. Interval improvement with decompression of a prior small intrahepatic absces s along the gallbladder fossa. 3. Lung disease in the basilar right lower lobe consistent with aspiration and/ or pneumonia. 4. Small sliding-type hiatal hernia with change of prior Shaina-en-Y gastric bypa ss. 5. Moderate sigmoid diverticulosis.
[2021-04-06 15:28] LABS: Estimated Glomerular Filt Rate > 60
== END ==
PROVIDERS: Visit Provider Surgery
DX: K80.00 Calculus of gallbladder with acute cholecystitis without obstruction (principal); K75.0 Abscess of liver; K57.30 Diverticulosis of large intestine without perforation or abscess without bleeding; K44.9 Diaphragmatic hernia without obstruction or gangrene
CPT/HCPCS: 74177; Q9967

== ENCOUNTER → 2021-04-24 02:00 | Outpatient (CLI) | payer MEDICARE, SELFPAY ==
[2021-04-24 17:54] LABS: SARS-CoV-2 RNA PCR Negative
== END ==
PROVIDERS: Visit Provider Surgery
DX: Z01.812 Encounter for preprocedural laboratory examination (principal); Z20.822 Contact with and (suspected) exposure to COVID-19
CPT/HCPCS: C9803; U0003; U0005

== ENCOUNTER 2021-04-24 09:57 | Outpatient (CLI) | payer MEDICARE, SELFPAY ==
[2021-04-24 10:30] LABS: Basophils Absolute Auto 0.1 K/mm3 (0.0-0.1); Basophils Percent Auto 0.5 % (0.2-1.2); Eosinophils Absolute Auto 0.2 K/mm3 (0-0.3); Eosinophils Percent Auto 1.7 % (0-4.4); Hematocrit 42.9 % (42.0-52.0); Hemoglobin 14.6 g/dL (14.0-18.0); Immature Granulocyte Absolute 0.03 K/mm3 (0.00-0.031); Immature Granulocyte Percent A 0.3 % (0-0.5); Lymphocytes Absolute Auto 1.21 K/mm3 (0.9-3.2); Lymphocytes Percent Auto 10.9 % (18.3-44.2); Mean Corpuscular Hemoglobin 32.4 pg (26-34); Mean Corpuscular Volume 95.3 fl (80-100); Mean Platelet Volume 9.6 fl (7.4-10.4); Monocytes Absolute Auto 1.2 K/mm3 (0.1-0.6); Monocytes Percent Auto 10.4 % (2.6-8.5); Neutrophils Absolute Auto 8.5 K/mm3 (1.3-6.7); Neutrophils Percent Auto 76.2 % (45.5-73.1); Platelet Count Result 336 k/mm3 (150-375); Red Cell Distribution Width 13.8 % (11.5-14.5); White Blood Count 11.1 K/mm3 (4.5-10.0)
[2021-04-24 13:51] LABS: Alanine Aminotransferase 22 U/L (4-50); Albumin Level 3.6 g/dL (3.5-5.1); Alkaline Phosphatase 75 U/L (38-126); Amylase 88 U/L (30-110); Anion Gap 6 mmol/L (8-16); Aspartate Amino Transferase 33 U/L (17-59); Bilirubin Indirect 0.7 mg/dL (0-1.1); Bilirubin,Total 0.7 mg/dL (0.2-1.3); Blood Urea Nitrogen 10 mg/dL (9-20); Carbon Dioxide 29 mmol/L (22-30); Chloride 99 mmol/L (98-107); Estimated Glomerular Filt Rate > 60; Glucose 104 mg/dL (65-110); Lipase 84 U/L (23-300); Sodium 134 mmol/L (137-145)
== END 2021-04-24 09:58 | disposition home or self-care (01) ==
LOC: ANHSURGERY 10:02
PROVIDERS: PCP Family Medicine; Visit Provider Surgery
DX: K81.1 Chronic cholecystitis (principal); Z01.818 Encounter for other preprocedural examination
CPT/HCPCS: 36415; 80053; 82150; 82248; 83690; 85025; C9803; U0003; U0005

== ENCOUNTER 2021-04-27 01:46 | Day surgery (SDC) | payer MEDICARE, SELFPAY ==
--- NOTE | 2021-04-22 10:05 | PC.NURSE ---
Report to the Outpatient Waiting Room, entrance under the green pavilion located off [facility], at time _0600 on date __04/27/21 . OR Time: _729 . - You and your visitor will be asked a series of questions to screen for COVID 19 for your protection. - A mask is required within the hospital. - Only one visitor is allowed at this time. Patient visitors will be guided where to wait when not with patient. Preoperative COVID Testing Requirements: No COVID Test needed if: (proof is required; if not received patient will have Rapid Test prior to entry) - Patient has received COVID Vaccine at least 14 days prior to procedure date or - Patient has positive COVID test result within last 90 days of surgery date. COVID TESTING 04/24/21 AT 0940 COVID Test needed if above criteria is not met If not COVID vaccinated a COVID test must be conducted within 72 hours of surgery and patient is asked to isolate self from time of testing until procedure. You will go to the [facility] for your COVID testing. The [facility] site is located at the corner of [address] from [facility]. You will only be called if COVID results are positive and your surgeon may reschedule your elective surgery date. Patients may have clear liquids (water, carbonated beverages, clear teas, apple juice) until 3 hours prior to surgery with a maximum of 20 ounces. - No food from midnight until time of surgery - Infants may have breast milk until 4 hours before surgery, formula 6 hours prior to surgery. - Children will be allowed to drink immediately following surgery. If applicable, please bring a bottle or sippy cup to assist with drinking. Juice, water, soda, and popsicles are readily available. For infants on formula, please bring formula the day of surgery. Pacifiers are allowed. Take the following medications with a SIP of water the morning of surgery: _BUSPIRONE AND ESCITALOPRAM Medications to discontinue per physician ____ALL VITAMINS AND SUPPLEMENTS 3 DAYS PRE OP Date to take last dose____04/23/21 Please no make-up, nail iraqi, hairspray, perfume, deodorant, or body powder the day of surgery. No jewelry (including any body piercings) or valuables the day of surgery, leave them at home. Please take a shower or bath the night before, or the morning of, surgery with an antibacterial soap. Wear comfortable, loose fitting clothing. Children are encouraged to wear pajamas. - Jewelry must be removed prior to entering the operating room. Rings and piercings that are not removed may be cut off. - The hospital will not accept responsibility for valuables. - Please leave all valuables, including medications, at home the day of surgery. HIBICLENS SHOWER MORNING OF SURGERY If you are going home after surgery, a licensed services delivery driver must drive you home. - NO public transportation without another adult. - We recommend that an adult stay with you for 24 hours following discharge. - We also recommend that you do not drive, make important decision, drink alcoholic beverages, or take any drugs that were not prescribed by your health care provider for at least 24 hours after your discharge time. For Pediatric surgeries, we recommend two adults accompany the child home (only one inside the building at this time). Follow any additional instructions given to you from your surgeon. Telephone instructions given to _PT'S CHAS and asked if any additional questions and then verbalized understanding. Patient advised to call surgeon office or pre surgery nurse liaison [phone] if any additional questions.
[2021-04-22 10:16] VITALS: BMI 23.1
[2021-04-27] VITALS (12 sets, daily range): BP systolic 96–115; BP diastolic 49–72; PULSE 66–88; RESP 12–18; TEMP 36.4–37.6; O2SAT 93–100
--- NOTE | ~2021-04-27 | XR_ITS ---
EXAMINATION: XR cholangiogram surg 1st inj DATE: 04/27/2021 12:12 INDICATION: Intraoperative evaluation during laparoscopic cholecystectomy TECHNIQUE: Multiple fluoroscopic images of the right upper quadrant were obtained during intraoperati ve cholangiography. A total of 270 fluoroscopic images were obtained. The amount of fluoroscopy time used during this procedure was 0.7 minutes. Total DAP was 0.404 mGycm^2 COMPARISON: None. FINDINGS: Contrast is injected through a percutaneous cholecystostomy tube with filling of the gallbl adder and normal-appearing cystic and common bile ducts which tapers smoothly distally with no intral uminal filling defects or stricture. A lucent filling defect consistent with a large gallstone is see n in the fundus of the gallbladder. Contrast extends into the duodenum with some reflux into a suture line along the more proximal duodenum. IMPRESSION: 1. Gallstone within the gallbladder. No filling defects or strictures within the cystic or common charisse e ducts. Reviewed, dictated and finalized at location B. OR FUND ACCOUNTANT IMPRESSION: 1. Gallstone within the gallbladder. No filling defects or strictures within th e cystic or common bile ducts.
[2021-04-27] MEDS: LACTATED RINGERS 1,000 ML 30 ML IV CONT ×2 (06:35→11:47)
[2021-04-27] MEDS: ACETAMINOPHEN 500 MG TABLET 1000 MG PO (06:37)
[2021-04-27] MEDS: KETOROLAC 15 MG/ML VIAL (*BKC) IV PUSH (06:37)
--- NOTE | 2021-04-27 06:46 | WPDANESEPPF ---
Anes - Initial Pre Proc Eval Procedure: Operation Date: 04/27/21 07:30 Proposed Procedures p Laparoscopic Cholecystectomy with Intraoperative Cholangiogram Possible open, through Cholecystostomy Tube, and Removal of Cholecystostomy Tube - Cory Becerra MD Date/Time: 04/27/21 06:46 Surgeon: Cory Becerra MD Pre Op Diagnosis: Chronic Cholecystitis with Cholelithiasis Patient Data Age: 71 Gender: M Height: 1.85 m Weight: 70 kg Allergies Allergy/AdvReac Type Severity Reaction Status Date / Time No Known Allergies Allergy Verified 04/22/21 09:46 Home Medications Medication Instructions Recorded Confirmed Type aspirin 81 mg chewable tablet 81 mg PO DAILY 12/02/20 04/22/21 History atorvastatin 40 mg tablet 40 mg PO HS 12/02/20 04/22/21 History buspirone 5 mg tablet 5 mg PO BID 12/02/20 04/22/21 History escitalopram oxalate 10 mg tablet 10 mg PO DAILY 12/02/20 04/22/21 History docusate sodium 100 mg PO Q12H PRN #30 cap 03/13/21 04/22/21 Rx ascorbic acid (vitamin C) 500 mg PO DAILY 04/22/21 04/22/21 History cholecalciferol (vitamin D3) 50 mcg PO DAILY 04/22/21 04/22/21 History coQ10 (ubiquinol) 100 mg PO BID 04/22/21 04/22/21 History cyanocobalamin (vitamin B-12) 1,000 mcg PO DAILY 04/22/21 04/22/21 History lidocaine [Lidoderm] 1 patch TRANSDERMAL PRN PRN 04/22/21 04/22/21 History Patient hx anesthesia problems: none Family hx anesthesia problems: none Results Review: All pre-operative results and documents have been reviewed as part of the pre-operative evaluation. [facility] Past Medical History Medical History Depression High cholesterol Hypoalbuminemia Liver abscess (Unknown) 02/2021 Stroke (01/2020) Residual left-sided weakness, hoarseness, and cognitive deficit. Surgical History Surgical History History of arthroscopy of both knees History of gastric bypass . History of inguinal hernia repair (12/11/20) Right inguinal hernia repair with 6cm Parietex hernia mesh system. Family History Family History Mother Morbid obesity Heart disease Diabetes mellitus Father Asbestosis Social History Social History Social History: Surrogate decision maker: Mayra Longoria, . Code status: Full code. Years smoked: 15 Smoking status: Former smoker Tobacco type: cigarettes, cigars and smokeless tobacco Smokeless tobacco user: chewing tobacco Second hand tobacco smoke exposure: No Additional smoking assessment comments: Quit smoking cigars in 1980, quit chewing tobacco in 2004 Alcohol intake: never Substance use: never Substance use type: does not use Living arrangements: with family Additional living arrangements comments: Lives with his , Mayra. They have 2 grown children. Additional occupation/education comments: Retired from [employer]. Spiritual care concerns: No Anes - Eval Final PreProcedure Day of Procedure 04/27/21 06:46 Patient weight: normal Heart: regular rate and rhythm Lungs: clear to auscultation Airway: Mallampati scale class II Neurological: alert and oriented Last oral intake: >/= 8 hours ASA classification: III Emergent: no Anesthetic plan: proceed Anesthesia type and monitoring: general ETT and standard monitoring Results Review: All pre-operative results and documents have been reviewed as part of the pre-operative evaluation. Informed Consent: The patient's anesthetic plan and its attendant risks and benefits were discussed with the patient/family/POA. Questions were solicited and answers provided to the satisfaction of the patient/family/POA.
--- NOTE | 2021-04-27 07:20 | WPDHPUPDATE1 ---
History and Physical Update Update Date/Time: 04/27/21 07:20 History and Physical has been reviewed, including an updated exam of the patient. There are NO changes in the patient's condition. He is still getting brown bile out his cholecystostomy tube. additionally I re-discussed the planned procedure wiht the pt and his . We are planning a laparoscopic cholecystectomywith intra-operative cholagiogram via the current cholecystostomy tube, a possible open cholecystectomy and removal of the cholecystostomy tube. Risks, benefits, and alternatives have been discussed and questions answered. Patient agrees to proceed with procedure.
[2021-04-27] MEDS: ceFAZolin 2 GM/D5W 50 ML 2 GM/50 ML BAG IVPB (07:32)
[2021-04-27] MEDS: LIDO 1%/EPINEPHRINE 1:100,000 50 ML VIAL 30 ML INFILTRATE (08:15)
--- NOTE | 2021-04-27 12:13 | W.PM.PROC2 ---
Procedure Note - Detailed Date of Procedure 04/27/21 Pre-op Diagnosis 1. Chronic Cholecystitis with Cholelithiasis 2. Recent acute cholecystitis, status post cholecystostomy tube drainage Post-op Diagnosis same Procedure Performed Laparoscopic cholecystectomy with intraoperative cholangiogram Surgeon Cory Becerra MD [email or web address]OR Stage Hand Anesthesia general Indications The patient is a 74 year-old white male with a history of a previous CVA. He also has a history of coronary artery disease. He had a Shaina-en-Y gastric bypass many years ago. He came in to [facility] in the middle of February with severe acute cholecystitis with cholelithiasis and thrombocytopenia. Because of this and all his co-morbidities an ultrasound-guided cholecystostomy tube was placed. He also had small abscesses next to his gallbladder under the liver. He was treated with long-term antibiotics and improved. He is now 6 - 8 weeks status post cholecystostomy tube placement and has seen his medical doctors and he has been cleared to have general anesthesia. Therefore, we are today embarking on a planned laparoscopic or open cholecystectomy with cholangiogram through the currently present cholecystostomy tube to help identify the area of the cystic duct. Recent CT scan after placement of the drain and after antibiotics showed decreased inflammation and a large stone lodged in the neck of the gallbladder. Findings Patient was found to have significant omental adhesions underneath the midline and in the left upper quadrant. We were able to enter the abdomen just below and to the right of the umbilicus under direct vision without obvious injury to the underlying structures. Subsequently he was found to have omentum completely covering the gallbladder and the transverse colon subadjacent to it. After tedious dissection the GB was found and there was a lot of chronic inflammation and scar surrounding it. Description of Procedure Procedure Details: Patient was seen preoperatively in the holding area and risks, benefits and alternatives confirmed. Patient was taken to the operating room aat the entrnd general anesthesia was induced. A time out was then preformed with the surgery team confirming patient and site of surgery. The abdomen was prepped and draped in the usual sterile fashion. Incision was made just below the umbilicus. Two stay sutures of O- Vicryl were used to elevate the mid-line fascia beneath the umbilicus and a small incision was made under direct vision. The peritoneum was entered. The 12 mm Ferreira cannula was introduced under direct vision. First under low flow and then under high flow the abdomen was insufflated with carbon dioxide never exceeding a pressure of 14. Three 5 mm trocars were then introduced under direct vision. The following trocars were introduced under direct vision: a 12 mm in the epigastrium and two 5 mm trocars along the right costal margin. There were significant adhesions of the omentum to the underside of the gallbladder and around the cholecytostomy tube, and these were taken down with blunt and sharp dissection. Bovie cautery was used for hemostasis. The gall bladder was grasped and the cystic duct and artery were dissected free and I carefully identified a window of safety with only two other structures in the area being the cystic duct and the cystic artery. I then used a 5 mm endo-clip tail puller to place 1 clip on what I thought was the cystic artery. and just 1 clip on the gallbladder side of the cystic duct. A cholangiogram was obtained by injection of omnipaque through the cholecystostomy tube revealing filling of the GB and free flow into the fairly long cystic duct,the common bile duct, common hepatic, right and left hepatic ducts with free flow into the duodenum with no filling defects in the intra nor extrahepatic biliary tree. The clip that I had applied to the level of the cystic artery that I thought would also
[2021-04-27] MEDS: fentaNYL CITRATE INJ (*CRX) 100 MCG/2 ML VIAL 25 MCG IV PUSH ×2 (12:52→12:55)
[2021-04-27] MEDS: oxyCODONE HCL (*CRX) 5 MG TAB IR PO (13:37)
== END 2021-04-27 14:45 | disposition home or self-care (01) ==
PROVIDERS: PCP Family Medicine; Visit Provider Surgery
PROC: 0FT44ZZ Resection of Gallbladder, Percutaneous Endoscopic Approach (ICD-10-PCS; CPT 47562; principal; 2021-04-27 07:30)
DX: K80.10 Calculus of gallbladder with chronic cholecystitis without obstruction (principal); I69.354 Hemiplegia and hemiparesis following cerebral infarction affecting left non-dominant side; I69.319 Unspecified symptoms and signs involving cognitive functions following cerebral infarction; E78.00 Pure hypercholesterolemia, unspecified; F32.9 Major depressive disorder, single episode, unspecified; Z98.84 Bariatric surgery status; Z79.82 Long term (current) use of aspirin; Z87.891 Personal history of nicotine dependence
CPT/HCPCS: 47563; 74300; 88304; A9270; J0330; J0690; J1100; J1885; J2250; J2370; J2405; J2704; J2710; J3010; J7120; Q9966

== ENCOUNTER → 2021-09-14 10:36 | Outpatient (CLI) | payer MEDICARE, SELFPAY ==
--- NOTE | ~2021-09-14 | CT_ITS ---
EXAMINATION: CT diagnostic chest wo con DATE: 09/14/2021 10:51 INDICATION: Pulmonary nodule TECHNIQUE: Computed tomography (CT) of the chest was performed without intravenous contrast. The dose -length product (DLP) was 119.59 mGy-cm. Automated exposure control and iterative reconstruction tech [employer] were employed. COMPARISON: 03/10/2021 FINDINGS: There is a stable 6 mm triangular nodule in association with the minor fissure on the right . No additional pulmonary nodules are identified. Bibasilar airspace opacities have resolved. There i s no pleural effusion or pneumothorax. The lungs are free of acute opacities. No pathologically enlar ged thoracic lymph nodes are identified. The heart size is normal. There is calcified coronary artery atherosclerosis. There is a small sliding hiatal hernia with surgical changes in the gastric fundus. The gallbladder is surgically absent. There is a 3 mm nonobstructing stone of the left kidney upper pole. There is moderate thoracic spondylosis. IMPRESSION: 1. 6 mm nodule of the right minor fissure which has the appearance of an fissural lymph node. No susp icious pulmonary nodule identified. Reviewed, dictated and finalized at location F. IMPRESSION: 1. 6 mm nodule of the right minor fissure which has the appearance of an fissur al lymph node. No suspicious pulmonary nodule identified.
== END ==
DX: R91.1 Solitary pulmonary nodule (principal)
CPT/HCPCS: 71250